=== PATIENT | male | born 1975 | race Caucasian/White ===

== ENCOUNTER 2020-06-10 13:13 | Emergency (ER) | payer OTHER ==
[~2020-06-10] VITALS: Ht 172.7 cm; Wt 87.1 kg
[2020-06-10] MEDS ORDERED: ASPirin 81 mg TAB PO ONE (14:00)
[2020-06-10 16:22] LABS: Basophils # (auto) 0 10 ^3/uL (0-0.2); Basophils % (auto) 0.4 % (0.0-2.0); Eosinophils # (auto) 0 10 ^3/uL (0-0.8); Eosinophils % (auto) 0.6 % (0.0-7.0); Hematocrit 44.2 % (41.0-53.0); Hemoglobin 14.3 g/dL (13.5-17.5); Mean Corpuscular Hemoglobin 29.7 pg (28.0-32.0); Mean Corpuscular Hgb Conc. 32.4 g/dL (32.0-36.0); Mean Corpuscular Volume 91.6 fL (80.0-100.0); Monocytes # (auto) 0.8 10 ^3/uL (0-1.3); Neutrophils # (auto) 6.1 10 ^3/uL (1.6-8.6); Nucleated Red Blood Cells % 0.1 %; Platelet Count (auto) 287 10^3/uL (140-450); Red Blood Cells 4.82 10^6/uL (4.5-5.90); Red Cell Distribution Width 14.2 % (11.8-14.3)
[2020-06-10 16:38] LABS: Alanine Aminotransferase 45 U/L (16-61); Albumin 2.9 g/dL (3.4-5.0); Anion Gap 7 (5-15); Aspartate Aminotransferase 42 U/L (15-37); Blood Urea Nitrogen 4 mg/dL (7-18); Calcium 7.9 mg/dL (8.5-10.1); Carbon Dioxide 27 mmol/L (21-32); Chloride 108 mmol/L (98-107); Glucose 77 mg/dL (74-106); Magnesium 1.9 mg/dL (1.6-2.6); Sodium 142 mmol/L (136-145)
[2020-06-10 16:41] LABS: INR 1.24 (0.9-1.15)
[2020-06-10 16:43] LABS: Alkaline Phosphatase 55 U/L (45-117); BUN/Creatinine Ratio 5.3; Bilirubin, Total 1.4 mg/dL (0.2-1.0); GFR African American 145 mL/min; GFR Non-African American 120 mL/min; Total Protein 5.6 g/dL (6.4-8.2)
[2020-06-10 16:53] LABS: Potassium 2.7 mmol/L (3.5-5.1)
[2020-06-10] MEDS ORDERED: POTASSIUM CHL 20 Meq TABLET PO ONE ×2 (17:30→17:45)
[2020-06-10 17:57] VITALS: BP 170/104
[2020-06-10] MEDS ORDERED: cloNIDine 0.1 mg/24hr 7 DAY PATCH TD ONE (18:15)
[2020-06-10] MEDS ORDERED: cloNIDine HCL 0.1 MG TAB PO ONE (18:30)
== END 2020-06-10 20:50 | disposition left against medical advice (07) ==
LOC: ER 13:13
DX: R07.2 Precordial pain (principal); I10 Essential (primary) hypertension; E87.6 Hypokalemia; G89.29 Other chronic pain; Z88.2 Allergy status to sulfonamides
CPT/HCPCS: 36415; 71045; 80053; 83735; 84484; 85025; 85379; 85610; 85730; 93005

== ENCOUNTER 2020-06-11 03:41 | Emergency (ER) | payer OTHER ==
[~2020-06-11] VITALS: Ht 172.7 cm; Wt 87.1 kg
[2020-06-11] MEDS ORDERED: SODIUM CHLORIDE 0.9% 1,000 ML IV ONE (06:46)
[2020-06-11 06:52] LABS: Basophils # (auto) 0.1 10 ^3/uL (0-0.2); Basophils % (auto) 0.9 % (0.0-2.0); Eosinophils # (auto) 0.2 10 ^3/uL (0-0.8); Eosinophils % (auto) 2.6 % (0.0-7.0); Hematocrit 42.6 % (41.0-53.0); Hemoglobin 13.6 g/dL (13.5-17.5); Lymphocytes # (auto) 0.9 10 ^3/uL (0.4-5.4); Lymphocytes % (auto) 14.9 % (10.0-50.0); Mean Corpuscular Hemoglobin 29.2 pg (28.0-32.0); Mean Corpuscular Hgb Conc. 31.9 g/dL (32.0-36.0); Mean Corpuscular Volume 91.4 fL (80.0-100.0); Monocytes # (auto) 0.6 10 ^3/uL (0-1.3); Monocytes % (auto) 10.2 % (0.0-12.0); Neutrophils # (auto) 4.4 10 ^3/uL (1.6-8.6); Neutrophils % (auto) 71.4 % (37.0-80.0); Nucleated Red Blood Cells % 0.1 %; Platelet Count (auto) 256 10^3/uL (140-450); Red Blood Cells 4.66 10^6/uL (4.5-5.90); Red Cell Distribution Width 14.3 % (11.8-14.3); White Blood Cell 6.2 10^3/uL (4.4-10.8)
[2020-06-11] MEDS ORDERED: methylPREDNISolone SOD SUCC 125 MG/2 ML VL IV ONE (07:00)
[2020-06-11] MEDS ORDERED: ASPirin 81 mg TAB PO ONE (07:00)
[2020-06-11] MEDS ORDERED: cloNIDine HCL 0.1 MG TAB PO ONE (07:00)
[2020-06-11 07:09] LABS: Chloride 108 mmol/L (98-107); Sodium 141 mmol/L (136-145)
[2020-06-11 07:16] LABS: INR 1.23 (0.9-1.15); Partial Thromboplastin Time 23.5 sec (23.0-31.2)
[2020-06-11 07:20] LABS: Alanine Aminotransferase 44 U/L (16-61); Albumin 2.5 g/dL (3.4-5.0); Alkaline Phosphatase 50 U/L (45-117); Anion Gap 6 (5-15); Aspartate Aminotransferase 41 U/L (15-37); BUN/Creatinine Ratio 4.1; Bilirubin, Total 1.4 mg/dL (0.2-1.0); Blood Urea Nitrogen 3 mg/dL (7-18); Calcium 7.4 mg/dL (8.5-10.1); Carbon Dioxide 27 mmol/L (21-32); GFR African American 149 mL/min; GFR Non-African American 123 mL/min; Glucose 76 mg/dL (74-106); Total Protein 5.1 g/dL (6.4-8.2)
[2020-06-11 07:34] LABS: Potassium 2.7 mmol/L (3.5-5.1)
[2020-06-11] MEDS ORDERED: POTASSIUM EFFERVESENT TAB 25 MEQ PO ONE (07:45)
[2020-06-11] MEDS ORDERED: POTASSIUM CHL 20MEQ/100ML 100 ML IV ONE (07:45)
[2020-06-11 10:18] VITALS: BP 146/70
== END 2020-06-11 10:20 | disposition home or self-care (01) ==
LOC: ER 03:44
DX: E87.6 Hypokalemia (principal); I10 Essential (primary) hypertension; J40 Bronchitis, not specified as acute or chronic; E44.0 Moderate protein-calorie malnutrition; Z68.29 Body mass index [BMI] 29.0-29.9, adult; F12.10 Cannabis abuse, uncomplicated; Z88.2 Allergy status to sulfonamides
CPT/HCPCS: 36415; 71045; 80053; 84484; 85025; 85379; 85610; 85730; 93005; 96361; 96365; 96366; 96375; 99285; J2930; J3480; J7030

== ENCOUNTER 2023-02-15 15:53 | Emergency (ER) | payer SELFPAY ==
[~2023-02-15] VITALS: Ht 172.7 cm; Wt 87.0 kg
[2023-02-15] MEDS ORDERED: LORazepam 2MG/ML-1ML VIAL IV ONE (16:15)
[2023-02-15] MEDS ORDERED: SODIUM CHLORIDE 0.9% 1,000 ML IVB ONE (16:15)
[2023-02-15 16:32] LABS: Basophils # (auto) 0.1 10 ^3/uL (0-0.2); Eosinophils # (auto) 0.2 10 ^3/uL (0-0.8); Monocytes # (auto) 0.9 10 ^3/uL (0-1.3); Neutrophils # (auto) 6.6 10 ^3/uL (1.6-8.6); Red Cell Distribution Width 15.4 % (11.8-14.3)
[2023-02-15 16:33] LABS: Basophils % (auto) 0.6 % (0.0-2.0); Eosinophils % (auto) 2.2 % (0.0-7.0); Hematocrit 52.2 % (41.0-53.0); Hemoglobin 17.8 g/dL (13.5-17.5); Lymphocytes # (auto) 1.6 10 ^3/uL (0.4-5.4); Mean Corpuscular Hgb Conc. 34.1 g/dL (32.0-36.0); Mean Corpuscular Volume 82.1 fL (80.0-100.0); Monocytes % (auto) 9.7 % (0.0-12.0); Neutrophils % (auto) 70.5 % (37.0-80.0); Nucleated Red Blood Cells % 0.6 %; Red Blood Cells 6.36 10^6/uL (4.5-5.90); White Blood Cell 9.3 10^3/uL (4.4-10.8)
[2023-02-15 16:53] LABS: Albumin 4.6 g/dL (3.4-5.0); Calcium 9.9 mg/dL (8.5-10.1); Potassium 3.8 mmol/L (3.5-5.1)
[2023-02-15 16:56] LABS: Bilirubin, Total 0.5 mg/dL (0.2-1.0); Total Protein 7.7 g/dL (6.4-8.2)
[2023-02-15 18:24] VITALS: BP 145/98
== END 2023-02-15 18:29 | disposition home or self-care (01) ==
LOC: ER 15:53
DX: R00.2 Palpitations (principal); R00.0 Tachycardia, unspecified; I10 Essential (primary) hypertension; F12.90 Cannabis use, unspecified, uncomplicated; Z88.2 Allergy status to sulfonamides
CPT/HCPCS: 36415; 71045; 80053; 83735; 84484; 85025; 93005; 96361; 96374; 99285; J2060; J7030

== ENCOUNTER 2024-10-06 12:12 | Emergency (ER) | payer MEDICAID, OTHER | END 2024-10-06 12:40 | disposition left against medical advice (07) | LOC: ER 12:12 | DX: J11.1 Influenza due to unidentified influenza virus with other respiratory manifestations (principal); Z53.21 Procedure and treatment not carried out due to patient leaving prior to being seen by health care provider ==

== ENCOUNTER 2024-11-13 21:59 | Emergency (ER) | payer SELFPAY ==
[~2024-11-13] VITALS: Ht 172.7 cm; Wt 90.9 kg
[2024-11-13 22:22] LABS: Basophils # (auto) 0 10 ^3/uL (0-0.2); Basophils % (auto) 0.3 % (0.0-2.0); Eosinophils # (auto) 0.1 10 ^3/uL (0-0.8); Hematocrit 49.8 % (41.0-53.0); Hemoglobin 16.9 g/dL (13.5-17.5); Lymphocytes # (auto) 1.3 10 ^3/uL (0.4-5.4); Lymphocytes % (auto) 18.5 % (10.0-50.0); Mean Corpuscular Hemoglobin 30.9 pg (28.0-32.0); Mean Corpuscular Volume 90.9 fL (80.0-100.0); Monocytes # (auto) 0.7 10 ^3/uL (0-1.3); Monocytes % (auto) 10.4 % (0.0-12.0); Neutrophils % (auto) 69.8 % (37.0-80.0); Nucleated Red Blood Cells % 0.1 %; Platelet Count (auto) 270 10^3/uL (140-450); Red Blood Cells 5.47 10^6/uL (4.5-5.90); Red Cell Distribution Width 13.2 % (11.8-14.3); White Blood Cell 7.2 10^3/uL (4.4-10.8)
[2024-11-13 22:37] LABS: Albumin 4.7 g/dL (3.2-4.8); Anion Gap 11 (5-15); Carbon Dioxide 22 mmol/L (20-31); Chloride 103 mmol/L (98-107); Glucose 106 mg/dL (74-106); Potassium 3.6 mmol/L (3.5-5.1)
[2024-11-13 22:38] LABS: Bilirubin, Total 0.7 mg/dL (0.2-1.0); Total Protein 7.3 g/dL (5.7-8.2)
[2024-11-13 22:39] LABS: INR 0.97 (0.9-1.15); Partial Thromboplastin Time 24.3 SEC (24.5-34.5); Prothrombin Time 10.3 sec (9.3-11.8)
[2024-11-13 22:41] LABS: Alanine Aminotransferase 133 U/L (7-40); Alkaline Phosphatase 124 U/L (46-116); Aspartate Aminotransferase 81 U/L (13-40); BUN/Creatinine Ratio 7.5 (10.0-20.0); Blood Urea Nitrogen < 5 mg/dL (9-23); Sodium 136 mmol/L (136-145)
--- NOTE | 2024-11-14 00:17 | DVH ---
CHEST RADIOGRAPH Indication: CP Technique: Single frontal view of the chest was obtained COMPARISON: XY CHEST PORTABLE on DOS: 02/15/23, CHEST XRAY 1 VIEW on DOS: 06/11/20, CHEST PORTABLE on DO S: 06/10/20 FINDINGS: Lines and Tubes: None Lungs: Clear Pleura: No effusion. No pneumothorax. Cardiomediastinal contours: Unremarkable Bones: Unremarkable IMPRESSION: 1. No acute disease.
[2024-11-14] MEDS ORDERED: IBUP200C14 PO (01:11)
--- NOTE | 2024-11-14 01:24 | ED.PDOC ---
History of Present Illness HPI Comments 49 y/o M, with a Hx of HTN, obesity, and marijuana and alcohol use, presents with c/o non-radiating, left-sided chest pain, palpitations, and shortness of breath, today. Patient reports sudden and unprovoked onset of symptoms, last night, that has been persisting since. He comments on pain being sharp, initi ally, and it, now, being dull and constant in nature and localized to his left, lower breast. Patient endorses no recent stressors, strenuous activities, additional significant past medical or surgical history, or relevant or pertinent information at time of assessment. He denies having any nausea, vomiting, fever, chills, cough, or other associated symptoms or modifiers at this time. Chief Complaint: Chest Pain Time Seen by MD: 22:00 Primary Care Provider: NONE Reviewed Notes: Nurses Notes, Medications, Allergies Allergies: Uncoded Allergies: SULFA (Allergy, Unknown, 06/10/20) Home Meds Active Scripts Ibuprofen (Advil) 200 Mg Cap, 800 MG PO QIDPRN, #30 CAP Prov:AB FRANCO MD 11/14/24 Information Source: Patient Mode of Arrival: Ambulatory Severity: Moderate Timing: Days Duration: Since onset Prehospital treatment: None Past Medical History PAST MEDICAL HISTORY: HTN Past Medical History (Other): obesity, childhood asthma Surgical History (Other): back and right foot Sx Family History Family History: Family hx of HTN Social History Smoker: Non-Smoker Alcohol: Rarely Drugs: Marijuana Lives In: Home Respiratory: reports: shortness of breath Cardiovascular: reports: chest pain, palpitations All Other Systems: Reviewed and Negative (negative unless otherwise stated above or in HPI) Physical Exam General Appearance: No Apparent Distress, Obese HEENT: Normal ENT Inspection, Pharynx Normal, TMs Normal Neck: Full Range of Motion, Non-Tender, Normal, Normal Inspection Respiratory: Chest Non-Tender, Lungs Clear, No Accessory Muscle Use, No Respiratory Distress, Normal Breath Sounds Cardiovascular: No Edema, No JVD, No Murmur, No Gallop, Normal Peripheral Pulses, Regular Rate/Rhythm Breast Exam: Deferred Gastrointestinal: No Organomegaly, Non Tender, No Pulsatile Mass, Normal Bowel Sounds, Soft Genitalia: Deferred Pelvic: Deferred Rectal: Deferred Extremities: No calf tenderness, Normal capillary refill, Normal inspection, Normal range of motion, Non-tender, No pedal edema Musculoskeletal : Apperance: Normal Neurologic: Alert, assistant front end manager II-XII nml as Tested, No Motor Deficits, Normal Affect, Normal Mood, No Sensory Deficits Cerebellar Function: Normal Reflexes: Normal Skin: Dry, Normal Color, Warm Lymphatic: No Adenopathy Was a procedure done? Was a procedure done?: No EKG EKG : Pulse Rate (adult): 95 [place]: Normal Cardiac Rhythm: NSR Block: None Hypertrophy: None ST: Normal Differential Dx Considerations may include: [place], PE, ACS, costochondritis, pericarditis, gastritis, viral syndrome, musculoskeletal pain, anxiety, angina, PNA, URI X-Ray, Labs, Meds, VS Vital Signs Date Time Temp Pulse Resp B/P (MAP) Pulse Ox O2 Delivery O2 Flow Rate FiO2 11/14/24 01:24 95 11/13/24 22:04 95 11/13/24 22:02 97.6 103 20 138/97 (111) 97 Lab Test 11/13/24 23:13 11/13/24 22:10 Range/Units Troponin I High Sensitivity < 3 L < 3 L </=54 ng/L White Blood Count 7.2 4.4-10.8 10^3/uL Red Blood Count 5.47 4.5-5.90 10^6/uL Hemoglobin 16.9 13.5-17.5 g/dL Hematocrit 49.8 41.0-53.0 % Mean Corpuscular Volume 90.9 80.0-100.0 fL Mean Corpuscular Hemoglobin 30.9 28.0-32.0 pg Mean Corpuscular Hemoglobin Concent 34.0 32.0-36.0 g/dL Red Cell Distribution Width 13.2 11.8-14.3 % Platelet Count 270 140-450 10^3/uL Mean Platelet Volume 7.7 6.9-10.8 fL Neutrophils (%) (Auto) 69.8 37.0-80.0 % Lymphocytes (%) (Auto) 18.5 10.0-50.0 % Monocytes (%) (Auto) 10.4 0.0-12.0 % Eosinophils (%) (Auto) 1.0 0.0-7.0 % Basophils (%) (Auto) 0.3 0.0-2.0 % Neutrophils # (Auto) 5.0 1.6-8.6 10 ^3/uL Lymphocytes # (Auto) 1.3 0.4-5.4 10 ^3/uL Monocytes # (Auto) 0.7 0-1.3 10 ^3/uL Eosinophils # (Auto) 0.1 0-0.8 10 ^3/uL Basophils # (Auto) 0 0-0.2 10 ^3/uL Nucleated Red Blood Cells 0.1 % Prothrombin Time 10.3 9.3-11.8 sec Prothrombin Time INR 0.97 0.9-1.15 Activated Partial Thromboplast Time 24.3 L 24.5-34.5 SEC Sodium Level 136 136-145 mmol/L Potassium Level 3.6 3.5-5.1 mmol/L Chloride Level 103 98-107 mmol/L Carbon Dioxide Level 22 20-31 mmol/L Anion Gap 11 5-15 Blood Urea Nitrogen < 5 L 9-23 mg/dL Creatinine 0.67 L 0.700-1.30 mg/dL Glomerular Filtration Rate Calc 116 >90 mL/min BUN/Creatinine Ratio 7.5 L 10.0-20.0 Serum Glucose 106 74-106 mg/dL Calcium Level 10.0 8.7-10.4 mg/dL Magnesium Level 2.0 1.6-2.6 mg/dL Total Bilirubin 0.7 0.2-1.0 mg/dL Aspartate Amino Transferase (AST) 81 H 13-40 U/L Alanine Aminotransferase (ALT) 133 H 7-40 U/L Alkaline Phosphatase 124 H 46-116 U/L B-Type Natriuretic Peptide 9.70 0-100 pg/mL Total Protein 7.3 5.7-8.2 g/dL Albumin 4.7 3.2-4.8 g/dL [place] [id number] Ph: [phone] DIAGNOSTIC IMAGING Diagnostic Imaging Report : [id number] Signed PATIENT: SABINA FELICIANO ACCT: [id number] UNIT: [id number] : 1975 LOC: ER ROOM / BED: / AGE / SEX: 49 / M ADM STATUS: REG ER SERVICE 0000 ORDERING PHYSICIAN: AB FRANCO MD PROCEDURE(s): CXRP - CHEST PORTABLE REASON: CP ORDER NUMBER(s): [id number], ACCESSION NUMBER(s): [id number] CHEST RADIOGRAPH Indication: CP Technique: Single frontal view of the chest was obtained COMPARISON: XY CHEST PORTABLE on DOS: 02/15/23, CHEST XRAY 1 VIEW on DOS: 06/11/20, CHEST PORTABLE on DOS: 06/10/20 FINDINGS: Lines and Tubes: None Lungs: Clear Pleura: No effusion. No pneumothorax. Cardiomediastinal contours: Unremarkable Bones: Unremarkable IMPRESSION: 1. No acute disease. ATED BY: VENKATESH POPE MD DICTATED DATE/TIME: 11/14/2414 SIGNED BY: VENKATESH POPE MD SIGNED DATE/TIME: 11/14/2414 CC: First troponin is 2nd troponin is three. EKG shows no signs of ischemia. CBC and CMP were normal. The patient will be discharged to follow up with the primary care physician for Cardiology referral. Time of 1ST Reevaluation: 22:30 Reevaluation 1ST: Unchanged Patient Education/Counseling: Diagnosis, Treatment Family Education/Counseling: No Family Present Departure 1 Departure Time of Disposition: 01:20 Impression: Primary Impression: Non-cardiac chest pain Disposition: HOME / SELF CARE / HOMELESS Condition: Fair e-Prescriptions Ibuprofen (Advil) 200 Mg Cap 800 MG PO QIDPRN, #30 CAP Prov: AB FRANCO MD 11/14/24 Critical Care Note Critical Care Time?: No Stability Stability form required: No Heart Score Heart Score: Heart Score Response (Comments) Value History Slightly Suspicious 0 EKG Normal 0 Age 45-64 1 Risk Factors 1 or 2 risk factors 1 Troponin Normal limit 0 Total 2 I personally scribed for AB FRANCO MD ([email or web address]) on 11/14/24 at 01:24. Electronically submitted by Holden Valentine ([email or web address]). AB FRANCO MD Nov 14, 2024 01:24
[2024-11-14 01:35] VITALS: BP 133/84; PULSE 85; RESP 20; TEMP 98.6; O2SAT 96
--- NOTE | 2024-11-15 12:27 | ECG ---
[facility] Test Date: 2024-11-13 Test Time: 22:04:24 Pat Name: SABINA FELICIANO Department: ED Room: Gender: M Staffing Analyst: RITU : 1975 Requested By: AB FRANCO Order Number: [id number] Reading MD: Chetan Mitchell Measurements Intervals [place] Rate: 95 P: 54 NH: 208 QRS: -31 QRSD: 81 T: 56 QT: 337 QTc: 424 Interpretive Statements Sinus rhythm Prolonged NH interval LAE, consider biatrial enlargement Left axis deviation Anterior infarct, old ST elevation, consider inferior injury Baseline wander in lead(s) V2,V5 Electronically Signed On 11-15-2024 17:49:03 PST by Chetan Mitchell Please click the below link to view image of tracing.
== END 2024-11-14 01:39 | disposition home or self-care (01) ==
LOC: ER 21:59
DX: R07.89 Other chest pain (principal); R00.2 Palpitations; R06.02 Shortness of breath; E66.9 Obesity, unspecified; I10 Essential (primary) hypertension; Z88.2 Allergy status to sulfonamides
CPT/HCPCS: 36415; 71045; 80053; 83735; 83880; 84484; 85025; 85610; 85730; 93005

== ENCOUNTER 2025-02-07 10:31 | Inpatient (IN) | payer MEDICAID ==
[~2025-02-07] VITALS: Ht 172.7 cm; Wt 94.7 kg
[~2025-02-07 10:31] MED LIST: IBUP200C14 PO
--- NOTE | 2025-02-07 10:50 | ED.PDOC ---
HPI Comments 49-year-old male brought in by self complaining of chest pain, onset this morning. Patient states he has been having intermittent chest pain for a long time, underwent echocardiogram in 2022 which he was told was unremarkable. He has never been further evaluated by a pmo consultant. Today chest pain is in the retrosternal area, described as rumbling, associated with left upper extremity pain, shortness of breath, fatigue and diaphoresis. He denies fever or cough. He states he has been out of his blood pressure medication (lisinopril 20 mg daily) since August 2024. Blood pressure at triage 147/111. Chief Complaint: Chest Pain Time Seen by MD: 10:40 Primary Care Provider: NONE Reviewed Notes: Nurses Notes, Medications, Allergies Allergies: Uncoded Allergies: SULFA (Allergy, Unknown, 06/10/20) Home Meds Active Scripts Ibuprofen (Advil) 200 Mg Cap, 800 MG PO QIDPRN, #30 CAP Prov:AB FRANCO MD 11/14/24 Information Source: Patient Mode of Arrival: Ambulatory Severity: Moderate Timing: Days Duration: Since onset Prehospital treatment: None Location: Substernal Radiation: Arm (L) Quality: Other (RUMBLING) Onset: At Rest Cardiac Risk Factors: HTN PE Risk Factors: None History of: Similar pain in past Modifying Factors: Nothing Associated Signs and Symptoms: SOB Past Medical History PAST MEDICAL HISTORY: Asthma, HTN Surgical History (Other): back, RIGHT FOOT Family History Family History: Reviewed,noncontributory to illness, Family hx of HTN Social History Smoker: Quit Greater Than 1 Year Alcohol: Rarely Drugs: Marijuana Lives In: Home Constitutional: reports: chills, sweats; denies: diaphoresis, fatigue, fever, malaise, weakness, others EENTM: denies: blurred vision, double vision, ear bleeding, ear discharge, ear drainage, ear pain, ear ringing, eye pain, eye redness, hearing loss, mouth pain, mouth swelling, nasal discharge, nose bleeding, nose congestion, nose pain, photophobia, tearing, throat pain, throat swelling, voice changes, others Respiratory: reports: shortness of breath; denies: cough, hemoptysis, orthopnea, SOB at rest, SOB with excertion, stridor, wheezing, others Cardiovascular: reports: chest pain, left arm pain; denies: dizzy spells, diaphoresis, Dyspnea on exertion, edema, irregular heart beat, lightheadedness, palpitations, PND, syncope, others Gastrointestinal: denies: abdomen distended, abdominal pain, blood streaked bowels, constipated, diarrhea, dysphagia, difficulty swallowing, hematemesis, melena, nausea, poor appetite, poor fluid intake, rectal bleeding, rectal pain, vomiting, others Genitourinary: denies: burning, dysuria, flank pain, frequency, hematuria, incontinence, penile discharge, penile sore, pain, testicle pain, testicle swelling, urgency, others Neurological: denies: dizziness, fainting, headache, left sided numbness, left sided weakness, numbness, paresthesia, pre-existing deficit, right sided numbne ss, right sided weakness, seizure, speech problems, tingling, tremors, weakness, others Musculoskeletal: denies: back pain, gout, joint pain, joint swelling, muscle pain, muscle stiffness, neck pain, others Integumetry: denies: bruises, change in color, change in hair/nails, dryness, laceration, lesions, lumps, rash, wounds, others Allergic/Immunocompromised: denies: Difficulty Healing, Frequent Infections, Hives, Itching, others Hematologic/Lymphatic: denies: anemia, blood clots, easy bleeding, easy bruising, swollen glands, others Endocrine: denies: excessive hunger, excessive sweating, excessive thirst, excessive urination, flushing, intolerance to cold, intolerance to heat, unexplained weight gain, unexplained weight loss, others Psychiatric: denies: anxiety, bipolar disorder, depression, hopeless, panic disorder, schizophrenia, sleepless, suicidal, others All Other Systems: Reviewed and Negative Physical Exam General Appearance: No Apparent Distress HEENT: Other (Pupils and face symmetric. Moist mucous membranes.) Neck: Full Range of Motion, Normal Inspection Respiratory: Lungs Clear, No Accessory Muscle Use, No Respiratory Distress, Normal Breath Sounds Cardiovascular: No Edema, No JVD, Regular Rate/Rhythm Breast Exam: Deferred Gastrointestinal: Non Tender, Soft Genitalia: Deferred Pelvic: Deferred Rectal: Deferred Extremities: Normal inspection, Normal range of motion, Non-tender, No pedal edema Neurologic: Alert (Oriented x4), Normal Affect, Normal Mood Cerebellar Function: NOT DONE Reflexes: NOT DONE Skin: Dry, Normal Color, Warm Lymphatic: NOT DONE EKG EKG : Comments Sinus rhythm, rate 86, normal intervals, borderline left axis deviation, possible left atrial enlargement, possible old anteroseptal infarct, no ST/T changes. Was a procedure done? Was a procedure done?: No CP Differential Dx Differential Diagnosis: Angina, Anxiety / Panic Attack, Heart Failure, GA, Pulmonary Embolus Differential Diagnosis: CHF, HTN Essential, HTN Accelerated Differential Diagnosis: Aortic dissection, Chest Wall Pain, Esophageal reflux/spasm, Gastritis, Pericarditis X-Ray, Labs, Meds, VS Vital Signs Date Time Temp Pulse Resp B/P (MAP) Pulse Ox O2 Delivery O2 Flow Rate FiO2 02/07/25 11:33 98.1 100 17 144/98 (113) 95 98.1 02/07/25 11:33 144/98 02/07/25 11:28 109 02/07/25 10:45 98.6 102 17 147/111 (123) 96 98.6 02/07/25 10:35 86 Lab Test 02/07/25 10:42 Range/Units White Blood Count 5.3 4.4-10.8 10^3/uL Red Blood Count 5.76 4.5-5.90 10^6/uL Hemoglobin 17.5 13.5-17.5 g/dL Hematocrit 51.8 41.0-53.0 % Mean Corpuscular Volume 89.9 80.0-100.0 fL Mean Corpuscular Hemoglobin 30.4 28.0-32.0 pg Mean Corpuscular Hemoglobin Concent 33.8 32.0-36.0 g/dL Red Cell Distribution Width 13.4 11.8-14.3 % Platelet Count 237 140-450 10^3/uL Mean Platelet Volume 7.8 6.9-10.8 fL Neutrophils (%) (Auto) 65.7 37.0-80.0 % Lymphocytes (%) (Auto) 15.0 10.0-50.0 % Monocytes (%) (Auto) 16.5 H 0.0-12.0 % Eosinophils (%) (Auto) 2.1 0.0-7.0 % Basophils (%) (Auto) 0.7 0.0-2.0 % Neutrophils # (Auto) 3.5 1.6-8.6 10 ^3/uL Lymphocytes # (Auto) 0.8 0.4-5.4 10 ^3/uL Monocytes # (Auto) 0.9 0-1.3 10 ^3/uL Eosinophils # (Auto) 0.1 0-0.8 10 ^3/uL Basophils # (Auto) 0 0-0.2 10 ^3/uL Nucleated Red Blood Cells 0.4 % Sodium Level 135 L 136-145 mmol/L Potassium Level 3.7 3.5-5.1 mmol/L Chloride Level 100 98-107 mmol/L Carbon Dioxide Level 26 20-31 mmol/L Anion Gap 9 5-15 Blood Urea Nitrogen 5 L 9-23 mg/dL Creatinine 0.78 0.700-1.30 mg/dL Glomerular Filtration Rate Calc 111 >90 mL/min BUN/Creatinine Ratio 6.4 L 10.0-20.0 Serum Glucose 96 74-106 mg/dL Calcium Level 10.0 8.7-10.4 mg/dL Total Bilirubin 1.4 H 0.2-1.0 mg/dL Aspartate Amino Transferase (AST) 203 H 13-40 U/L Alanine Aminotransferase (ALT) 150 H 7-40 U/L Alkaline Phosphatase 111 46-116 U/L Troponin I High Sensitivity 4 </=54 ng/L B-Type Natriuretic Peptide 18.79 0-100 pg/mL Total Protein 7.2 5.7-8.2 g/dL Albumin 4.5 3.2-4.8 g/dL Current Medications Medications (Trade) Dose Ordered Sig/Marlee Route Start Time Stop Time Status Last Admin Acetaminophen (Tylenol Tablet Or Capsule) 1,000 mg ONCE ONCE PO 02/07/25 11:00 02/07/25 11:01 DC 02/07/25 11:32 Nitroglycerin (Nitrodur 0.4MG/ Hr) 1 patch ONCE ONCE TD 02/07/25 11:30 02/07/25 11:31 DC 02/07/25 11:[address] [address] Ph: [phone] DIAGNOSTIC IMAGING Diagnostic Imaging Report : [id number] Signed PATIENT: SABINA FELICIANO ACCT: [id number] UNIT: [id number] : 1975 LOC: ER ROOM / BED: / AGE / SEX: 49 / M ADM STATUS: REG ER SERVICE 1046 ORDERING PHYSICIAN: ARELI WOODWARD MD PROCEDURE(s): CXRP - CHEST PORTABLE REASON: cp ORDER NUMBER(s): [id number], ACCESSION NUMBER(s): [id number] EXAM: XY CHEST PORTABLE HISTORY: cp COMPARISON: XY CHEST PORTABLE on DOS: 11/13/24, XY CHEST PORTABLE on DOS: 02/15/23, CHEST XRAY 1 VIEW on DOS: 06/11/20, CHEST PORTABLE on DOS: 06/10/20 TECHNIQUE: Portable AP view of the chest was performed. FINDINGS: No pneumothorax, consolidative infiltrates, or pulmonary edema. The heart is not enlarged. There is an old healed right mid clavicular fracture. IMPRESSION: No acute intrathoracic process. ATED BY: MONE RODRIGUEZ MD DICTATED DATE/TIME: 02/07/25 111 SIGNED BY: MONE RODRIGUEZ MD SIGNED DATE/TIME: 02/07/25 111 CC: X-Ray, Labs, Meds, VS Comment 49-year-old male with a history of hypertension, off medications for several months, presenting with chest pain radiating to the left upper extremity associated with shortness of breath, fatigue and diaphoresis Vitals remarkable for heart rate 102, BP 147/111 Exam unremarkable Rhythm strip independently interpreted by me: Sinus rhythm, rate 86, no ectopy. Chest x-ray remarkable CBC remarkable, CMP remarkable for sodium 135, AST 203, ALT 150, total bilirubin 1.4, BNP normal, troponin negative, UA pending Patient treated with the following in the ED: Nitro patch 0.4 mg transdermal Tylenol 1 g p.o. On re-evaluation, blood pressure is 144/98 and patient states chest pain has improved. Vitals are otherwise stable. Patient has been seen here several times in the ED for chest pain and has not undergone further cardiac workup. Plan is to admit the patient for blood pressure control and Cardiology evaluation Time of 1ST Reevaluation: 11:20 Reevaluation 1ST: Unchanged Patient Education/Counseling: Diagnosis, Treatment Family Education/Counseling: No Family Present Departure 1 Departure Time of Disposition: 11:36 Impression: Primary Impression: Chest pain with high risk for cardiac etiology Additional Impression: Hypertensive urgency Disposition: 09 ADMITTED INPATIENT Admit to: Tele Condition: Guarded Critical Care Note Critical Care Time?: No Stability Stability form required: No Heart Score Heart Score: Heart Score Response (Comments) Value History Highly Suspicious 2 EKG Repolarization Disturb 1 Age <45 0 Risk Factors 1 or 2 risk factors 1 Troponin Normal limit 0 Total 4 I personally scribed for ARELI WOODWARD MD ([email or web address]) on 02/07/25 at 10:50. Electronically submitted by Edna Wong ([email or web address]). I personally scribed for ARELI WOODWARD MD ([email or web address]) on 02/07/25 at 11:26. Electronically submitted by Edna Wong ([email or web address]). ARELI WOODWARD MD Feb 07, 2025 10:50
[2025-02-07 10:55] LABS: Basophils # (auto) 0 10 ^3/uL (0-0.2); Basophils % (auto) 0.7 % (0.0-2.0); Eosinophils # (auto) 0.1 10 ^3/uL (0-0.8); Eosinophils % (auto) 2.1 % (0.0-7.0); Hematocrit 51.8 % (41.0-53.0); Hemoglobin 17.5 g/dL (13.5-17.5); Lymphocytes # (auto) 0.8 10 ^3/uL (0.4-5.4); Mean Corpuscular Hemoglobin 30.4 pg (28.0-32.0); Mean Corpuscular Hgb Conc. 33.8 g/dL (32.0-36.0); Mean Corpuscular Volume 89.9 fL (80.0-100.0); Monocytes # (auto) 0.9 10 ^3/uL (0-1.3); Monocytes % (auto) 16.5 % (0.0-12.0); Neutrophils # (auto) 3.5 10 ^3/uL (1.6-8.6); Neutrophils % (auto) 65.7 % (37.0-80.0); Nucleated Red Blood Cells % 0.4 %; Platelet Count (auto) 237 10^3/uL (140-450); Red Blood Cells 5.76 10^6/uL (4.5-5.90); Red Cell Distribution Width 13.4 % (11.8-14.3); White Blood Cell 5.3 10^3/uL (4.4-10.8)
[2025-02-07 11:11] LABS: Albumin 4.5 g/dL (3.2-4.8); Alkaline Phosphatase 111 U/L (46-116); Anion Gap 9 (5-15); BUN/Creatinine Ratio 6.4 (10.0-20.0); Carbon Dioxide 26 mmol/L (20-31); Chloride 100 mmol/L (98-107); Glucose 96 mg/dL (74-106); Potassium 3.7 mmol/L (3.5-5.1); Total Protein 7.2 g/dL (5.7-8.2)
[2025-02-07 11:20] LABS: Alanine Aminotransferase 150 U/L (7-40); Aspartate Aminotransferase 203 U/L (13-40); Bilirubin, Total 1.4 mg/dL (0.2-1.0); Blood Urea Nitrogen 5 mg/dL (9-23); Sodium 135 mmol/L (136-145)
--- NOTE | 2025-02-07 11:22 | DVH ---
EXAM: XY CHEST PORTABLE HISTORY: cp COMPARISON: XY CHEST PORTABLE on DOS: 11/13/24, XY CHEST PORTABLE on DOS: 02/15/23, CHEST XRAY 1 VIEW on DOS: 06/11/20, CHEST PORTABLE on DOS: 06/10/20 TECHNIQUE: Portable AP view of the chest was performed. FINDINGS: No pneumothorax, consolidative infiltrates, or pulmonary edema. The heart is not enlarged. There is a n old healed right mid clavicular fracture. IMPRESSION: No acute intrathoracic process.
[2025-02-07] MEDS: ACETAMINOPHEN 500 MG TAB or CAP PO ONE (11:32)
[2025-02-07] MEDS: NITROGLYCERIN 0.4MG/HR TOPICAL PATCH TD ONE (11:33)
[2025-02-07 11:55] LABS: Urine Bacteria None Seen /hpf (None Seen)
[2025-02-07 12:03] LABS: Urine Blood Negative /uL (Negative); Urine Clarity Clear (Clear); Urine Color Yellow (Yellow); Urine Protein, UAD Negative (Negative); Urine Specific Gravity 1.009 (1.001-1.035); Urine Squamous Epithelial Cell None Seen /hpf (<5); Urine Urobilinogen Normal (Negative); Urine WBC 2 /HPF (0-3)
[2025-02-07] MEDS: LISINOPRIL 5 MG TAB PO ONE (17:45)
[2025-02-07] MEDS ORDERED: MORPHINE SULFATE INJ 2 MG/ml SYRG IV PRN (17:45)
[2025-02-07] MEDS ORDERED: NITROGLYCERIN 0.4 MG SL TAB SL PRN (17:45)
[2025-02-07] MEDS ORDERED: ONDANSETRON HCL 4 MG/2 ML VIAL IV PRN (17:45)
[2025-02-07] MEDS ORDERED: ATORVASTATIN 20 MG TAB PO ONE (17:45)
[2025-02-07] MEDS ORDERED: ACETAMINOPHEN 325 MG TAB PO PRN (17:45)
--- NOTE | 2025-02-07 17:47 | DVHHPRES ---
History of Present Illness Resident Creating Document: TANIA HENRIQUEZ RESDIENT History of Present Illness 49-year-old male with past medical history of hypertension and childhood asthma came to the hospital due to chest and left upper limb pain. Per patient, he has chronic chest pain since few years, pain is localized on left side of chest, constant, 3/10, pressure-like with no clear exacerbating or relieving factor. Today, upon waking of sleep he had left upper limb pain, pain is localized lower to elbow, 5/10, worsened with mobility and reproducible with palpation. He also reports night sweats, recurrent palpitation which wakens up him from sleep 30-40 times per night and upon waking up feel shortness of breaths. He denies fever, nausea, vomiting, any recent sick contacts or any bowel and bladder habit changes. Patient was previously using lisinopril 20 mg daily and has run out of medicine since August 2024. PMHx: Hypertension and childhood asthma PSHx: Nonsignificant Family history: Not contributory Social history: Ex-smoker ex marijuana user, denies current drug use. Home medication: Lisinopril 20 mg daily, ran out of medicines since August 2024 Allergic history: Sulfa drugs Patient seen and examined at the bedside. Patient is still complaining of left- sided chest and left upper limb pain. Review of Systems Review of Systems General: patient denies fever, fatigue, weaknes, sweating, any recent changes in appetite and weight HEENT: Reports nighttime sweating Cardiovascular: Reports chest pain and nighttime palpitation Respiratory: No cough, and wheezing. Gastrointestinal: Denies nausea, vomiting, dysphagia, odynophagia, heartburn, abdominal pain, flatulence, bloating, diarrhea, constipation, change in stool, or blood in stool. Genitourinary: No dysuria, hematuria, discharge, frequency, urgency, nocturia, incontinence, and urinary retention. Endocrine: No heat or cold intolerance, polydipsia, polyuria, and polyphagia. Neurological: No dizziness, extremity weakness and numbness, tremors, gait disturbance, seizures, and memory impairment. Psychiatric: Denies depression, anxiety,or insomnia. Musculoskeletal: Denies neck pain, stiffness and swelling, back pain, muscle weakness, joint pain, stiffness, swelling, or limited range of motion. Skin: No rashes, itching, skin lesion, changes in hair, nail, skin texture and breast. Hematologic/Lymphatic: Denies easy bruising, bleeding tendencies, or lymph node enlargement. Allergies: Uncoded Allergies: SULFA (Allergy, Unknown, 06/10/20) Medications Current Medications Medications Dose Ordered Sig/Marlee Route Start Time Stop Time Status Last Admin Dose Admin Acetaminophen 650 mg Q6HP PRN PO 02/07/25 17:45 UNV Acetaminophen/ Hydrocodone Bitart 1 tab Q4HP PRN PO 02/07/25 17:45 UNV Ondansetron HCl 4 mg Q4HP PRN IV 02/07/25 17:45 UNV Enoxaparin Sodium 40 mg DAILY SC 02/08/25 10:00 UNV Nitroglycerin 0.4 mg Q5MINP PRN SL 02/07/25 17:45 UNV Morphine Sulfate 2 mg Q30M PRN IV 02/07/25 17:45 UNV Aspirin 81 mg DAILY PO 02/08/25 10:00 UNV Exam Vital Signs Vital Signs Date Time Temp Pulse Resp B/P (MAP) Pulse Ox O2 Delivery O2 Flow Rate FiO2 02/07/25 14:30 98.9 97 18 146/87 (106) 96 98.9 02/07/25 11:33 Room Air Exam General Appearance: Alert, Oriented X3, Cooperative, No acute distress HEENT: Atraumatic, PERRLA, EOMI, Mucous membrane moist/pink Respiratory: Clear to auscultation, Normal air movement Cardiovascular: Regular rate, Normal S1, Normal S2, No murmurs, no chest wall tenderness Abdominal: Normal bowel sounds, Soft, No tenderness, No hepatosplenomegaly, No masses Extremities: Left upper arm below elbow mild tenderness Skin: No rashes, No breakdown, No significant lesion Neuro: Normal gait, Normal speech, Strength at 5/5 X4 ext, Normal tone, Sensation intact, Cranial nerves 3-12 NL, Reflexes 2+ Psych/Mental Status: Mental status NL, Mood NL Labs/Xrays Labs Test 02/07/25 11:53 02/07/25 11:22 02/07/25 10:42 Range/Units Troponin I High Sensitivity 4 </=54 ng/L Urine Color Yellow Yellow Urine Clarity Clear Clear Urine pH 7.0 5.0-9.0 Urine Specific [place] 1.009 1.001-1.035 Urine Protein Negative Negative Urine Ketones 1+ H Negative Urine Blood Negative Negative /uL Urine Nitrite Negative Negative Urine Bilirubin Negative Negative Urine Urobilinogen Normal Negative mg/dL Urine Leukocyte Esterase Negative Negative /uL Urine RBC <1 0 - 3 /hpf Urine Microscopic WBC 2 0-3 /HPF Urine Squamous Epithelial Cells None seen <5 /hpf Urine Bacteria None seen None Seen /hpf Urine Glucose Normal Normal mg/dL White Blood Count 5.3 4.4-10.8 10^3/uL Red Blood Count 5.76 4.5-5.90 10^6/uL Hemoglobin 17.5 13.5-17.5 g/dL Hematocrit 51.8 41.0-53.0 % Mean Corpuscular Volume 89.9 80.0-100.0 fL Mean Corpuscular Hemoglobin 30.4 28.0-32.0 pg Mean Corpuscular Hemoglobin Concent 33.8 32.0-36.0 g/dL Red Cell Distribution Width 13.4 11.8-14.3 % Platelet Count 237 140-450 10^3/uL Mean Platelet Volume 7.8 6.9-10.8 fL Neutrophils (%) (Auto) 65.7 37.0-80.0 % Lymphocytes (%) (Auto) 15.0 10.0-50.0 % Monocytes (%) (Auto) 16.5 H 0.0-12.0 % Eosinophils (%) (Auto) 2.1 0.0-7.0 % Basophils (%) (Auto) 0.7 0.0-2.0 % Neutrophils # (Auto) 3.5 1.6-8.6 10 ^3/uL Lymphocytes # (Auto) 0.8 0.4-5.4 10 ^3/uL Monocytes # (Auto) 0.9 0-1.3 10 ^3/uL Eosinophils # (Auto) 0.1 0-0.8 10 ^3/uL Basophils # (Auto) 0 0-0.2 10 ^3/uL Nucleated Red Blood Cells 0.4 % Sodium Level 135 L 136-145 mmol/L Potassium Level 3.7 3.5-5.1 mmol/L Chloride Level 100 98-107 mmol/L Carbon Dioxide Level 26 20-31 mmol/L Anion Gap 9 5-15 Blood Urea Nitrogen 5 L 9-23 mg/dL Creatinine 0.78 0.700-1.30 mg/dL Glomerular Filtration Rate Calc 111 >90 mL/min BUN/Creatinine Ratio 6.4 L 10.0-20.0 Serum Glucose 96 74-106 mg/dL Calcium Level 10.0 8.7-10.4 mg/dL Total Bilirubin 1.4 H 0.2-1.0 mg/dL Aspartate Amino Transferase (AST) 203 H 13-40 U/L Alanine Aminotransferase (ALT) 150 H 7-40 U/L Alkaline Phosphatase 111 46-116 U/L B-Type Natriuretic Peptide 18.79 0-100 pg/mL Total Protein 7.2 5.7-8.2 g/dL Albumin 4.5 3.2-4.8 g/dL Assessment/Plan Assessment/Plan Chest pain, R/O ACS Left upper arm pain, likely due to muscle spasm History of hypertension EKGs shows normal sinus rhythm with no acute ST or T-wave changes Serial trop I is within normal limits Consulted cardio Echocardiogram Aspirin Atorvastatin Lisinopril Pain management Acute transaminitis Check acute hepatitis panel Liver ultrasound History of childhood asthma DIET: Cardiac the DVT PROPHYLAXIS: Lovenox GI PROPHYLAXIS:: Protonix CODE STATUS: Goal of care discussed for 20 minutes, full code DISPOSITION: Telemetry Patient's status and plan discussed with the patient. Case discussed with Dr. Colón. Plan discussed with: Patient, Other (RN) My Orders Orders - TANIA HENRIQUEZ RESDIVIVIENNE Procedure Category Date Status Time Admit ADMIT 02/07/25 Transmitted 17:39 Code Status CODE 02/07/25 Transmitted 17:39 Vital Signs KATHY 02/07/25 In Process 17:39 Review Orders With KATHY 02/07/25 In Process Adm. 17:39 Consistent DIET 02/07/25 Transmitted Carb(Ccho)Diabetes Dinner Acetaminophen Tablet PHA 02/07/25 Logged (Tylenol Tablet) 17:45 Notify Of Changes KATHY 02/07/25 In Process From Base 17:39 Advance Directive KATHY 02/07/25 In Process 17:39 Echo 2d Mode Cardiac US 02/07/25 Logged DOP 17:39 Lipid Panel LAB 02/07/25 Logged 17:39 Patient Condition ORDERS 02/07/25 Transmitted 17:39 Allergies KATHY 02/07/25 In Process 17:39 Hydrocodone-Acet PHA 02/07/25 Logged 5/325mg Tab ([place] 17:45 Ondansetron Hcl PHA 02/07/25 Logged (Zofran) 17:45 Drug Screen LAB 02/07/25 Logged 17:39 Hemoglobin A1c LAB 02/07/25 Logged 17:39 Lovenox 40mg PHA 02/08/25 Transmitted 10:00 Nitroglycerin PHA 02/07/25 Transmitted Sublingual (Ntrostat 17:45 Morphine Sulfate PHA 02/07/25 Transmitted Injection 17:45 Oxygen By Nasal RT 02/07/25 Transmitted Cannula 17:39 Stat Ekg For Chest KATHY 02/07/25 Transmitted Pain 17:39 Notify Md Of Changes [facility] 02/07/25 Transmitted From Base 17:39 Radiographer Mammographer For [facility] 02/07/25 Transmitted 24 Hours 17:39 Emergency Dysrhythmia [facility] 02/07/25 Transmitted Protocol 17:39 Rhythm Strips Once [facility] 02/07/25 Transmitted Every Shift 17:39 Thyroid Stimulating LAB 02/07/25 Logged Hormone 17:39 Comprehensive LAB 02/08/25 Verified Metabolic Panel 04:00 Complete Blood Count LAB 02/08/25 Verified 04:00 PTPTT LAB 02/08/25 Verified 04:00 Aspirin Tablet PHA 02/07/25 Transmitted 17:45 Aspirin Tablet PHA 02/08/25 Transmitted 10:00 Atorvastatin (Lipitor) PHA 02/07/25 Transmitted 17:45 Atorvastatin (Lipitor) PHA 02/07/25 Transmitted 22:00 Lisinopril Tablet PHA 02/07/25 Transmitted (Zestril Tablet) 17:45 Lisinopril Tablet PHA 02/08/25 Transmitted (Zestril Tablet) 10:00 Gabapentin Capsule PHA 02/07/25 Transmitted (Neurontin Capsule) 17:45 Gabapentin Capsule PHA 02/07/25 Transmitted (Neurontin Capsule) 22:00 * Cardiology Consult CONS 02/07/25 Transmitted 17:39 Acute Hepatitis Panel LAB 02/07/25 Logged 17:39 Hiv 1&2 Antibody LAB 02/07/25 Logged 17:39 LIVER US 02/07/25 Logged 17:39 Magnesium LAB 02/07/25 Verified 17:47 Addendum Addendum Addendum I was physically present for the caicedo portions of the service provided to patient by THE RESIDENT. I have reviewed the documentation, discussed the case with resident and agree with the resident's documentation except as noted. Also the patient's clinical case was discussed with the patient's nurse. This medical document was created using an electronic medical record system with computerized dictation system. Although this document has been carefully reviewed, there might still be some phonetic and typographical errors. These areas are purely typographical due to imperfections of the software programs, and do not reflect any compromise in the patient's medical care. Late signature. Date of Service: Feb 07, 2025 Billing Provider: CARLOS COLÓN MD Common Visit Codes: 98455-ANTOULT INP/OBS CARE (HIGH) Secondary Visit Codes: [id number] CARE PLAN 30 MINUTES (20 minutes) TANIA HENRIQUEZ RESDIENT Feb 07, 2025 17:47 CARLOS COLÓN MD Feb 08, 2025 14:15
[2025-02-07 18:23] LABS: Triglycerides 74 mg/dL (< 150)
[2025-02-07 18:24] LABS: LDL Cholesterol 84 mg/dL (< 100)
[2025-02-07 18:26] LABS: Cholesterol 218 mg/dL (< 200); HDL Cholesterol 109 mg/dL (40-59)
[2025-02-07] MEDS: ASPirin 81 mg TAB PO ONE (18:30)
[2025-02-07] MEDS: GABAPENTIN 100 MG CAP PO ONE (18:30)
[2025-02-07] MEDS: HYDROcodone-ACET 5/325MG TAB PO PRN (18:44)
[2025-02-07] MEDS ORDERED: CYCLOBENZAPRINE HCL 10 MG TAB PO PRN (18:45)
[2025-02-07] MEDS: CYCLOBENZAPRINE HCL 10 MG TAB PO ONE (18:46)
--- NOTE | 2025-02-07 19:26 | DVH ---
ABDOMINAL ULTRASOUND CLINICAL HISTORY: Raised LFT TECHNIQUE: Multiple grayscale and color Doppler ultrasound images were obtained of the abdomen. WID: COMPARISON: None FINDINGS: Liver and Biliary System: Increased echogenicity, enlarged measuring 18.4 cm. No focal hepatic obs ervations. No intrahepatic bile duct dilatation. The common duct measures 0.6 cm at the doris hepat is. The gallbladder is normal caliber without wall thickening.. No cholelithiasis, sonographic mur phy's sign is negative. Pancreas: Visualized portions are unremarkable. Kidneys: The right kidney is 12.7 cm . No hydronephrosis, increased echogenicity, shadowing stone, or focal lesion. IMPRESSION: Hepatomegaly with diffuse hepatic steatosis.
[2025-02-07 19:57] LABS: Cannabinoid Screen, Urine Pos (NEGATIVE)
[2025-02-07 19:58] LABS: Amphetamine Screen, Urine Neg (NEGATIVE); Barbiturate Scree,Urine Neg (NEGATIVE); Benzodiazephine Screen, Urine Neg (NEGATIVE); Cocaine Screen, Urine Neg (NEGATIVE); Opiate Scree,Urine Neg (NEGATIVE); Phencyclidine Screen, Urine Neg (NEGATIVE)
[2025-02-07 20:04] VITALS: PULSE 102; RESP 16; O2SAT 94
[2025-02-07] MEDS: PANTOPRAZOLE 40 MG/10 ML VIAL INJ IV ONE (20:39)
[2025-02-07] MEDS: ATORVASTATIN 20 MG TAB PO SCH (22:27)
[2025-02-07] MEDS: GABAPENTIN 100 MG CAP PO SCH (22:27)
[2025-02-07 22:59] VITALS: BP 130/87; PULSE 90; RESP 16; TEMP 97.6; O2SAT 96
[2025-02-08] VITALS (7 sets, daily range): BP systolic 118–128; BP diastolic 80–90; PULSE 80–100; RESP 13–18; TEMP 97.5–98; O2SAT 94–97
[2025-02-08 05:44] LABS: Basophils # (auto) 0 10 ^3/uL (0-0.2); Basophils % (auto) 0.6 % (0.0-2.0); Eosinophils # (auto) 0.2 10 ^3/uL (0-0.8); Eosinophils % (auto) 3.8 % (0.0-7.0); Hematocrit 46.8 % (41.0-53.0); Hemoglobin 15.7 g/dL (13.5-17.5); Lymphocytes % (auto) 17.1 % (10.0-50.0); Mean Corpuscular Hemoglobin 30.2 pg (28.0-32.0); Mean Corpuscular Hgb Conc. 33.5 g/dL (32.0-36.0); Mean Corpuscular Volume 90.4 fL (80.0-100.0); Monocytes # (auto) 0.8 10 ^3/uL (0-1.3); Monocytes % (auto) 13.9 % (0.0-12.0); Neutrophils # (auto) 3.9 10 ^3/uL (1.6-8.6); Neutrophils % (auto) 64.6 % (37.0-80.0); Nucleated Red Blood Cells % 0.1 %; Platelet Count (auto) 214 10^3/uL (140-450); Red Blood Cells 5.18 10^6/uL (4.5-5.90); Red Cell Distribution Width 13.2 % (11.8-14.3)
[2025-02-08 06:00] LABS: INR 0.98 (0.9-1.15); Prothrombin Time 10.4 sec (9.3-11.8)
[2025-02-08 06:01] LABS: Alkaline Phosphatase 92 U/L (46-116); Anion Gap 8 (5-15); BUN/Creatinine Ratio 6.8 (10.0-20.0); Calcium 9.5 mg/dL (8.7-10.4); Carbon Dioxide 26 mmol/L (20-31); Chloride 101 mmol/L (98-107); Glucose 93 mg/dL (74-106); Total Protein 6.4 g/dL (5.7-8.2)
[2025-02-08 06:09] LABS: Alanine Aminotransferase 117 U/L (7-40); Aspartate Aminotransferase 117 U/L (13-40); Bilirubin, Total 1.3 mg/dL (0.2-1.0); Blood Urea Nitrogen 5 mg/dL (9-23); Potassium 3.2 mmol/L (3.5-5.1); Sodium 135 mmol/L (136-145)
--- NOTE | 2025-02-08 06:40 | DVHPNRES ---
Progress Note Date Seen: Feb 08, 2025 Resident Creating Document: TANIA HENRIQUEZ RESDIENT Medical Necessity Reason Pt with a Central, PICC or Fol: No Subjective Review of Systems Patient seen and examined at the bedside. Patient is still complaining of mild chest pain. Patient reports: No new complaints, Feels better Objective vital signs Vital Sign Date Time Temp Pulse Resp B/P (MAP) Pulse Ox O2 Delivery O2 Flow Rate FiO2 02/08/25 05:21 80 15 123/80 (94) 96 02/08/25 01:00 97.7 97.7 02/07/25 22:59 Room Air* 0 21 Total Intake and Output 02/07/25 02/07/25 02/08/25 15:00 23:00 07:00 Intake Total 50 ml Output Total 0 ml Balance 50 ml medications Current Medications Medications Dose Ordered Sig/Marlee Route Start Time Stop Time Status Last Admin Dose Admin Acetaminophen 650 mg Q6HP PRN PO 02/07/25 17:45 Acetaminophen/ Hydrocodone Bitart 1 tab Q4HP PRN PO 02/07/25 17:45 02/08/25 05:51 1 TAB Ondansetron HCl 4 mg Q4HP PRN IV 02/07/25 17:45 Enoxaparin Sodium 40 mg DAILY SC 02/08/25 10:00 Nitroglycerin 0.4 mg Q5MINP PRN SL 02/07/25 17:45 Morphine Sulfate 2 mg Q30M PRN IV 02/07/25 17:45 Aspirin 81 mg DAILY PO 02/08/25 10:00 Atorvastatin Calcium 80 mg HS PO 02/07/25 22:00 02/07/25 22:27 80 MG Lisinopril 10 mg DAILY PO 02/08/25 10:00 Gabapentin 100 mg BID PO 02/07/25 22:00 02/07/25 22:27 100 MG Pantoprazole Sodium 40 mg DAILY IV 02/08/25 10:00 Cyclobenzaprine HCl 5 mg Q8HPRN PRN PO 02/07/25 18:45 Examination General Appearance: Alert, Oriented X3, Cooperative, No acute distress HEENT: Atraumatic, PERRLA, EOMI, Mucous membrane moist/pink Respiratory: Clear to auscultation, Normal air movement Cardiovascular: Regular rate, Normal S1, Normal S2, No murmurs, no chest wall tenderness Abdominal: Normal bowel sounds, Soft, No tenderness, No hepatospenomegaly, No masses Extremities: No clubbing, No cyanosis, No edema, Normal pulses, No tenderness/swelling Skin: No rashes, No breakdown, No significant lesion Neuro: Normal gait, Normal speech, Strength at 5/5 X4 ext, Normal tone, Sensation intact, Cranial nerves 3-12 NL, Reflexes 2+ Psych/Mental Status: Mental status NL, Mood NL laboratory and microbiology Laboratory Tests 02/08/25 04:56 Test 02/08/25 04:56 Range/Units Serum Glucose 93 74-106 mg/dL Labs and/or images reviewed: Labs reviewed by me, Image(s) reviewed by me Problem List/Assessment/Plan Problem List/Assessment/Plan Chest pain, R/O ACS Left upper arm pain, likely due to muscle spasm History of hypertension EKGs shows normal sinus rhythm with no acute ST or T-wave changes Serial trop I is within normal limits Consulted cardio, recommended nuclear stress test Echocardiogram Aspirin Atorvastatin Lisinopril Pain management Acute transaminitis Check acute hepatitis panel Liver ultrasound History of childhood asthma Dyslipidemia Hypokalemia, repleted Hypomagnesemia, repleted Hepatomegaly Ultrasound shows, hepatomegaly with diffuse hepatic steatosis DIET: Cardiac the DVT PROPHYLAXIS: Lovenox GI PROPHYLAXIS:: Protonix CODE STATUS: Goal of care discussed for more than 18 minutes, full code DISPOSITION: Telemetry Patient's status and plan discussed with the patient. Case discussed with Dr. Saba. Plan discussed with: Patient, Other (RN) My Orders My Orders Orders - TANIA HENRIQUEZ RESDIVIVIENNE Procedure Category Date Status Time Admit ADMIT 02/07/25 Transmitted 17:39 Code Status CODE 02/07/25 Transmitted 17:39 Vital Signs KATHY 02/07/25 In Process 17:39 Review Orders With KATHY 02/07/25 In Process Adm.Md 17:39 Consistent DIET 02/07/25 Transmitted Carb(Ccho)Diabetes Dinner Acetaminophen Tablet PHA 02/07/25 In Process (Tylenol Tablet) 17:45 Notify Md Of Changes KATHY 02/07/25 In Process From Base 17:39 Advance Directive KATHY 02/07/25 In Process 17:39 Echo 2d Mode Cardiac US 02/07/25 Logged DOP 17:39 Patient Condition ORDERS 02/07/25 Transmitted 17:39 Allergies KATHY 02/07/25 In Process 17:39 Hydrocodone-Acet PHA 02/07/25 In Process 5/325mg Tab ([place] 17:45 Ondansetron Hcl PHA 02/07/25 In Process (Zofran) 17:45 Enoxaparin Sodium PHA 02/08/25 In Process (Lovenox) 10:00 Nitroglycerin PHA 02/07/25 In Process Sublingual (Ntrostat 17:45 Morphine Sulfate PHA 02/07/25 In Process Injection 17:45 Oxygen By Nasal RT 02/07/25 Transmitted Cannula 17:39 Stat Ekg For Chest KATHY 02/07/25 In Process Pain 17:39 Notify Md Of Changes KATHY 02/07/25 In Process From Base 17:39 Immigration Case Manager For KATHY 02/07/25 In Process 24 Hours 17:39 Emergency Dysrhythmia KATHY 02/07/25 In Process Protocol 17:39 Rhythm Strips Once KATHY 02/07/25 In Process Every Shift 17:39 Aspirin Tablet PHA 02/08/25 In Process 10:00 Atorvastatin (Lipitor) PHA 02/07/25 In Process 22:00 Lisinopril Tablet PHA 02/08/25 In Process (Zestril Tablet) 10:00 Gabapentin Capsule PHA 02/07/25 In Process (Neurontin Capsule) 22:00 * Cardiology Consult CONS 02/07/25 Transmitted 17:39 Acute Hepatitis Panel LAB 02/07/25 In Process 17:39 LIVER US 02/07/25 Resulted 17:39 Pantoprazole PHA 02/08/25 In Process (Protonix) 10:00 Cyclobenzaprine PHA 02/07/25 In Process Tablet ([place]er[place] 18:45 Date of Service: Feb 08, 2025 Billing Provider: ZEINA JIMENEZ MD Common Visit Codes: [id number] INP/OBS CARE(HIGH) TANIA HENRIQUEZ RESDIENT Feb 08, 2025 06:40 ZEINA JIMENEZ MD February 11, 2025 20:11
--- NOTE | 2025-02-08 06:44 | ECG ---
[facility] Test Date: 2025-02-07 Test Time: 10:35:39 Pat Name: SABINA FELICIANO Department: ED Room: 0279T Gender: M [employer] Supervisor: : 1975 Requested By: ARELI ROSAS Order Number: [id number] Reading MD: Chetan Mitchell Measurements Intervals [place] Rate: 86 P: 54 ID: [id number] QRS: -28 QRSD: 89 T: 49 QT: 373 QTc: 446 Interpretive Statements Sinus rhythm LAE, consider biatrial enlargement Borderline left axis deviation Probable anteroseptal infarct, old Electronically Signed On 02-08-2025 17:09:41 PDT by Chetan Mitchell Please click the below link to view image of tracing.
[2025-02-08] MEDS: POTASSIUM EFFERVESENT TAB 25 MEQ PO ONE (07:03)
[2025-02-08] MEDS: MAGNESIUM SULFATE 1GM/100ML 100 ML IV ONE (07:12)
[2025-02-08] MEDS: ASPirin 81 mg TAB PO SCH (09:11)
[2025-02-08] MEDS: LISINOPRIL 5 MG TAB PO SCH (09:12)
[2025-02-08] MEDS: ENOXAPARIN SOD 40 MG/0.4 ML SYRINGE SC SCH (09:13)
[2025-02-08 10:07] LABS: Hepatitis B Surface Antigen Negative (Negative)
[2025-02-08] MEDS: PANTOPRAZOLE 40 MG/10 ML VIAL INJ IV SCH (10:19)
[2025-02-08 10:27] LABS: Hepatitis A Ab IgM Negative; Hepatitis B Core IgM Negative (Negative); Hepatitis C Antibody Negative (Negative)
--- NOTE | 2025-02-08 11:22 | DVHINCON2 ---
Date Seen: Feb 08, 2025 Referring Physician MD Gina resident Reason for Consultation Rule out ACS History of Present Illness This is a 49-year-old male patient who presents to the emergency room with worsening chest pain for two months. The patient describes the pain as unprovoked, intermittent, pressure-like in nature, left sided with radiation down his left arm. Associated symptoms include shortness of breath. Initial twelve lead electrocardiogram reveals normal sinus rhythm without any significant ST segment changes. Initial troponin level of 4ng/L. Significant past medical history includes hypertension, dyslipidemia, asthma, chronic back pain, migraines, tobacco use, alcohol use, and remote history of drug use. The patient was given transdermal nitroglycerin in the emergency room and the patient reports that it helped his chest pain. Of note, the patient reports coming to the emergency room multiple times for chest pain and states he has had no kind of cardiac workup in the past. Past Medical History Past medical history reviewed. No other significant than mentioned above. Past Surgical History Back surgery Family History: Patient reports no known family medical history. Family History Family history reviewed. Social History Patient has a 10 pack-year history, quit smoking tobacco approximately 20 years ago Patient reports chewing tobacco for 27 years, quit approximately five years ago Patient reports a remote history of cocaine abuse, last time approximately 30 years ago Patient admits to drinking 6-8 beers per day Allergies: Uncoded Allergies: SULFA (Allergy, Unknown, 06/10/20) Home Meds Active Scripts Ibuprofen (Advil) 200 Mg Cap, 800 MG PO QIDPRN, #30 CAP Prov:AB FRANCO MD 11/14/24 Home Meds Home medications reviewed. Current Medications Current Medications Medications (Trade) Dose Ordered Sig/Marlee Route PRN Reason Start Time Stop Time Status Last Admin Acetaminophen (Tylenol Tablet) 650 mg Q6HP PRN PO PAIN SCALE 1-3 OR TEMP>100.4 02/07/25 17:45 Acetaminophen/ Hydrocodone Bitart ([place] 5/325MG Tab) 1 tab Q4HP PRN PO MODERATE PAIN (4-6 PAIN SCALE) 02/07/25 17:45 02/08/25 05:51 Ondansetron HCl (Zofran) 4 mg Q4HP PRN IV NAUSEA / VOMITING 02/07/25 17:45 Enoxaparin Sodium (Lovenox) 40 mg DAILY SC 02/08/25 10:00 02/08/25 09:13 Nitroglycerin (Ntrostat Sublingual) 0.4 mg Q5MINP PRN SL FOR CHEST PAIN 02/07/25 17:45 Morphine Sulfate 2 mg Q30M PRN IV FOR CHEST PAIN 02/07/25 17:45 Aspirin 81 mg DAILY PO 02/08/25 10:00 02/08/25 09:11 Atorvastatin Calcium (Lipitor) 80 mg HS PO 02/07/25 22:00 02/07/25 22:27 Lisinopril (Zestril Tablet) 10 mg DAILY PO 02/08/25 10:00 02/08/25 09:12 Gabapentin (Neurontin Capsule) 100 mg BID PO 02/07/25 22:00 02/08/25 09:11 Pantoprazole Sodium (Protonix) 40 mg DAILY IV 02/08/25 10:00 02/08/25 10:19 Cyclobenzaprine HCl (Flexeril Tablet) 5 mg Q8HPRN PRN PO FOR MUSCLE SPASM 02/07/25 18:45 Review of Systems Constitutional: No symptom reported Ears, Nose, & Throat: No symptom reported Eyes: No symptom reported Neurological: No symptoms reported Pulmonary/Respiratory: Shortness of breath Cardiovascular: Chest pain Gastrointestinal: No symptom reported Genitourinary: No symptom reported Musculoskeletal: No symptom reported Skin: No symptom reported Psychiatric: No symptom reported Endocrine: No symptom reported Hematologic/Lymphatic: No symptom reported Vital Signs Vital Signs Date Time Temp Pulse Resp B/P (MAP) Pulse Ox O2 Delivery O2 Flow Rate FiO2 02/08/25 09:12 128/90 02/08/25 08:07 97.7 81 18 96 97.7 02/07/25 22:59 Room Air* 0 21 Physical Exam General Appearance: Cooperative. Well-developed. Well-nourished. No acute distress. Pulmonary/Respiratory: Clear, bilateral breaths sounds. Cardiovascular/Chest: Regular rate and rhythm. Peripheral Pulses: 2+ Radial (R). 2+ Radial (L). 2+ Pedal (R). 2+ Pedal (L) Abdominal Exam: Normal bowel sounds. Ankle Exam: Negative ankle edema Lower extremities: Negative lower extremity edema Neuro/Mental Status: A/OX4, coherent. Thoughts/Psych: Normal thought pattern. Appropriate mood and affect. Good judgment and insight. Appearance: No acute distress. Skin Exam: Normal inspection. Normal color. Warm and dry. Labs/Diagnostic Data Labs Test 02/08/25 04:56 02/07/25 11:53 02/07/25 11:22 02/07/25 10:42 Range/Units White Blood Count 6.0 4.4-10.8 10^3/uL Red Blood Count 5.18 4.5-5.90 10^6/uL Hemoglobin 15.7 13.5-17.5 g/dL Hematocrit 46.8 41.0-53.0 % Mean Corpuscular Volume 90.4 80.0-100.0 fL Mean Corpuscular Hemoglobin 30.2 28.0-32.0 pg Mean Corpuscular Hemoglobin Concent 33.5 32.0-36.0 g/dL Red Cell Distribution Width 13.2 11.8-14.3 % Platelet Count 214 140-450 10^3/uL Mean Platelet Volume 8.2 6.9-10.8 fL Neutrophils (%) (Auto) 64.6 37.0-80.0 % Lymphocytes (%) (Auto) 17.1 10.0-50.0 % Monocytes (%) (Auto) 13.9 H 0.0-12.0 % Eosinophils (%) (Auto) 3.8 0.0-7.0 % Basophils (%) (Auto) 0.6 0.0-2.0 % Neutrophils # (Auto) 3.9 1.6-8.6 10 ^3/uL Lymphocytes # (Auto) 1.0 0.4-5.4 10 ^3/uL Monocytes # (Auto) 0.8 0-1.3 10 ^3/uL Eosinophils # (Auto) 0.2 0-0.8 10 ^3/uL Basophils # (Auto) 0 0-0.2 10 ^3/uL Nucleated Red Blood Cells 0.1 % Prothrombin Time 10.4 9.3-11.8 sec Prothrombin Time INR 0.98 0.9-1.15 Activated Partial Thromboplast Time 25.0 24.5-34.5 SEC Sodium Level 135 L 136-145 mmol/L Potassium Level 3.2 L 3.5-5.1 mmol/L Chloride Level 101 98-107 mmol/L Carbon Dioxide Level 26 20-31 mmol/L Anion Gap 8 5-15 Blood Urea Nitrogen 5 L 9-23 mg/dL Creatinine 0.74 0.700-1.30 mg/dL Glomerular Filtration Rate Calc 112 >90 mL/min BUN/Creatinine Ratio 6.8 L 10.0-20.0 Serum Glucose 93 74-106 mg/dL Calcium Level 9.5 8.7-10.4 mg/dL Total Bilirubin 1.3 H 0.2-1.0 mg/dL Aspartate Amino Transferase (AST) 117 H 13-40 U/L Alanine Aminotransferase (ALT) 117 H 7-40 U/L Alkaline Phosphatase 92 46-116 U/L Total Protein 6.4 5.7-8.2 g/dL Albumin 4.0 3.2-4.8 g/dL Troponin I High Sensitivity 4 </=54 ng/L Urine Color Yellow Yellow Urine Clarity Clear Clear Urine pH 7.0 5.0-9.0 Urine Specific [place] 1.009 1.001-1.035 Urine Protein Negative Negative Urine Ketones 1+ H Negative Urine Blood Negative Negative /uL Urine Nitrite Negative Negative Urine Bilirubin Negative Negative Urine Urobilinogen Normal Negative mg/dL Urine Leukocyte Esterase Negative Negative /uL Urine RBC <1 0 - 3 /hpf Urine Microscopic WBC 2 0-3 /HPF Urine Squamous Epithelial Cells None seen <5 /hpf Urine Bacteria None seen None Seen /hpf Urine Glucose Normal Normal mg/dL Urine Opiates Screen Neg NEGATIVE Urine Fentanyl Screen Neg NEGATIVE Urine Barbiturates Screen Neg NEGATIVE Urine Phencyclidine Screen Neg NEGATIVE Urine Amphetamines Screen Neg NEGATIVE Urine Benzodiazepines Screen Neg NEGATIVE Urine Cocaine Screen Neg NEGATIVE Urine Cannabinoids Screen Pos NEGATIVE Hemoglobin A1c 4.5 <5.7 % A1C Magnesium Level 1.8 1.6-2.6 mg/dL B-Type Natriuretic Peptide 18.79 0-100 pg/mL Triglycerides Level 74 < 150 mg/dL Cholesterol Level 218 H < 200 mg/dL LDL Cholesterol 84 < 100 mg/dL HDL Cholesterol 109 H 40-59 mg/dL Thyroid Stimulating Hormone (TSH) 1.56 0.55-4.78 uIU/mL Hepatitis A IgM Antibody Negative Hepatitis B Surface Antigen Negative Negative Hepatitis B Core IgM Antibody Negative Negative Hepatitis C Antibody Negative Negative HIV (1&2) Antibody Negative Negative Assessment Chest pain, rule out coronary ischemia Rule out structural heart disease Hypertension Dyslipidemia Transaminitis History of tobacco use Alcohol use Plan/Recommendation We will continue with the following plan/recommendations (Dr. Mitchell): * Transthoracic echocardiogram to evaluate cardiac function * Chest pain protocol * HEART score: 3 points * Single antiplatelet therapy and lipid-lowering agent * DVT/VTE prophylaxis * Close Cardiac surveillance * Nuclear stress test Given patient's clinical presentation and comorbidities, we will offer the patient a nuclear stress test at this time. Patient was first offered a treadm ill stress test. Patient reports he has chronic back pain and has had multiple back surgeries and believes he would be unable to complete the stress test if it were on a treadmill. Patient opted for nuclear stress test at this time. We will proceed with nuclear stress test at soonest availability. Thank you for allowing us to care for this patient. Please call with any questions or concerns. Thank you for allowing us to care for this patient. Please call with any questions or concerns. Critical care time spent: 43 minutes This medical document was created using an electronic medical record system with voice recognition software and computerized dictation system. Although this document has been carefully reviewed, there might still be some phonetic and typographical errors. Occasional wrong-word or ``sound-alike substitutions may have occurred due to the inherent limitations of voice recognition software. These areas are purely typographical due to imperfections of the software programs and do not reflect any compromise in the patient's medical care. Please read the chart carefully and recognize, using context, where these substitutions have occurred. Plan discussed with: Patient NYHA Physical activity limitations: NA Date of Service: Feb 08, 2025 Billing Provider: REGGIE PELLETIER Cardiology Common Codes: [id number] INP/OBS CARE (High) Cardiology Consultation Codes: [id number] CONSULT <45MIN REGGIE PELLETIER Feb 08, 2025 11:22
[2025-02-08] MEDS: REGADENOSON 0.4 MG/5 ML SYRG IV ONE ×2 (14:08)
[2025-02-09] VITALS (8 sets, daily range): BP systolic 120–131; BP diastolic 67–96; PULSE 66–103; RESP 17–22; TEMP 97.7–98; O2SAT 93–97
[2025-02-09 06:58] LABS: Basophils # (auto) 0 10 ^3/uL (0-0.2); Basophils % (auto) 0.7 % (0.0-2.0); Eosinophils # (auto) 0.2 10 ^3/uL (0-0.8); Eosinophils % (auto) 4.8 % (0.0-7.0); Hematocrit 48.3 % (41.0-53.0); Hemoglobin 16.4 g/dL (13.5-17.5); Lymphocytes # (auto) 0.9 10 ^3/uL (0.4-5.4); Lymphocytes % (auto) 20.9 % (10.0-50.0); Mean Corpuscular Hemoglobin 30.7 pg (28.0-32.0); Mean Corpuscular Hgb Conc. 33.9 g/dL (32.0-36.0); Mean Corpuscular Volume 90.4 fL (80.0-100.0); Monocytes # (auto) 0.8 10 ^3/uL (0-1.3); Monocytes % (auto) 17.9 % (0.0-12.0); Neutrophils # (auto) 2.4 10 ^3/uL (1.6-8.6); Neutrophils % (auto) 55.7 % (37.0-80.0); Nucleated Red Blood Cells % 0.1 %; Platelet Count (auto) 199 10^3/uL (140-450); Red Blood Cells 5.34 10^6/uL (4.5-5.90); Red Cell Distribution Width 13.2 % (11.8-14.3); White Blood Cell 4.3 10^3/uL (4.4-10.8)
[2025-02-09 07:10] LABS: Alkaline Phosphatase 92 U/L (46-116); Anion Gap 8 (5-15); Calcium 9.9 mg/dL (8.7-10.4); Carbon Dioxide 27 mmol/L (20-31); Chloride 104 mmol/L (98-107); Glucose 97 mg/dL (74-106); Sodium 139 mmol/L (136-145); Total Protein 6.4 g/dL (5.7-8.2)
[2025-02-09 07:11] LABS: Alanine Aminotransferase 123 U/L (7-40); Aspartate Aminotransferase 106 U/L (13-40); Blood Urea Nitrogen 5 mg/dL (9-23); Potassium 3.4 mmol/L (3.5-5.1)
--- NOTE | 2025-02-09 12:53 | DVHPNRES ---
Progress Note Date Seen: February 09, 2025 Resident Creating Document: TANIA HENRIQUEZ JOSE Has the PT tested + for MRSA If YES, has PT been informed?: No Medical Necessity Reason Pt with a Central, PICC or Fol: No Subjective Review of Systems Patient is seen and examined at bedside. Patient is still complaining of mild chest pain Objective vital signs Vital Sign Date Time Temp Pulse Resp B/P (MAP) Pulse Ox O2 Delivery O2 Flow Rate FiO2 02/09/25 09:09 97.7 88 22 131/89 (103) 97 97.7 02/09/25 08:05 Room Air* 0 21 Total Intake and Output 02/08/25 02/08/25 02/09/25 15:00 23:00 07:00 Intake Total 550 ml 700 ml Output Total 3 ml Balance 547 ml 700 ml medications Current Medications Medications Dose Ordered Sig/Marlee Route Start Time Stop Time Status Last Admin Dose Admin Acetaminophen 650 mg Q6HP PRN PO 02/07/25 17:45 Acetaminophen/ Hydrocodone Bitart 1 tab Q4HP PRN PO 02/07/25 17:45 02/09/25 08:37 1 TAB Ondansetron HCl 4 mg Q4HP PRN IV 02/07/25 17:45 Enoxaparin Sodium 40 mg DAILY SC 02/08/25 10:00 02/09/25 08:40 40 MG Nitroglycerin 0.4 mg Q5MINP PRN SL 02/07/25 17:45 Morphine Sulfate 2 mg Q30M PRN IV 02/07/25 17:45 Aspirin 81 mg DAILY PO 02/08/25 10:00 02/09/25 08:37 81 MG Atorvastatin Calcium 80 mg HS PO 02/07/25 22:00 02/08/25 21:33 80 MG Lisinopril 10 mg DAILY PO 02/08/25 10:00 02/09/25 08:38 10 MG Gabapentin 100 mg BID PO 02/07/25 22:00 02/09/25 08:37 100 MG Pantoprazole Sodium 40 mg DAILY IV 02/08/25 10:00 02/09/25 08:38 40 MG Cyclobenzaprine HCl 5 mg Q8HPRN PRN PO 02/07/25 18:45 Examination General Appearance: Alert, Oriented X3, Cooperative, No acute distress HEENT: Atraumatic, PERRLA, EOMI, Mucous membrane moist/pink Respiratory: Clear to auscultation, Normal air movement Cardiovascular: Regular rate, Normal S1, Normal S2, No murmurs, no chest wall tenderness Abdominal: Normal bowel sounds, Soft, No tenderness, No hepatospenomegaly, No masses Extremities: No clubbing, No cyanosis, No edema, Normal pulses, No tenderness/swelling Skin: No rashes, No breakdown, No significant lesion Neuro: Normal gait, Normal speech, Strength at 5/5 X4 ext, Normal tone, Sensation intact, Cranial nerves 3-12 NL, Reflexes 2+ Psych/Mental Status: Mental status NL, Mood NL laboratory and microbiology Laboratory Tests 02/09/25 05:17 Test 02/09/25 05:17 Range/Units Serum Glucose 97 74-106 mg/dL Labs and/or images reviewed: Labs reviewed by me, Image(s) reviewed by me Problem List/Assessment/Plan Problem List/Assessment/Plan Chest pain, R/O ACS Left upper arm pain, likely due to muscle spasm History of hypertension EKGs shows normal sinus rhythm with no acute ST or T-wave changes Serial trop I is within normal limits Consulted cardio, recommended nuclear stress test Echocardiogram Aspirin Atorvastatin Lisinopril Pain management Acute transaminitis Check acute hepatitis panel Liver ultrasound History of childhood asthma Dyslipidemia Hypokalemia, repleted Hypomagnesemia, repleted Hepatomegaly Ultrasound shows, hepatomegaly with diffuse hepatic steatosis DIET: Cardiac the DVT PROPHYLAXIS: Lovenox GI PROPHYLAXIS:: Protonix CODE STATUS: Goal of care discussed for more than 18 minutes, full code DISPOSITION: Telemetry Patient's status and plan discussed with the patient. Case discussed with Dr. Saba. Plan discussed with: Patient, Other (RN) Date of Service: February 09, 2025 Billing Provider: ZEINA JIMENEZ MD Common Visit Codes: [id number] INP/OBS CARE(HIGH) TANIA HENRIQUEZ RESDIENT February 09, 2025 12:53 ZEINA JIMENEZ MD February 11, 2025 20:42
--- NOTE | 2025-02-09 13:18 | DVHSR ---
APPROVED REPORT Exam: Nuclear Stress Test Indication: CHEST PAIN BMI: 0 Medical History Medical History: HTN, Asthma Stress Test Details Stress Test: Pharmacologic stress testing performed using 0.4 mg of regadenoson per 5 mL given IV ov er 10 seconds. HR Resting HR: 68 bpmMax Heart Rate (APMHR): 173.692843 bpm Max HR Achieved: 125 bpmTarget HR (85% APMHR): 147.497232 bpm % of APMHR: 72.25 Recovery HR: 100 bpm BP Resting BP: 127/84 mmHg Recovery BP: 119/78 mmHg ECG Resting ECG: Sinus Rhythm Clinical Reason for Termination: Completed protocol Stress ECG Conclusion lvef 60% no severe ischemia noted inferior wall G I artifact noted sinus tachycardia with stress portion NM EXAM: Myocardial Perfusion REST/STRESS Imaging Protocol: Rest Tc-99m/Stress Tc-99m 1 day Resting Data Rest SPECT myocardial perfusion imaging was performed in supine position 60 minutes following the int ravenous injection of 11.7 mCi of Tc-99m Sestamibi. Time of rest injection: 12:55 Date: 02/08/2025 Time of rest imagin:55 Date: 02/08/2025 Administration Route: IV Administration Site: Left AC Pharmacologic Stress Pharmacologic stress test was performed by injecting Regadenoson 0.4 mg IV push followed by the intra venous injection of 32.0 mCi of Tc-99m Sestamibi. Time of stress injection: 14:10 Date: 02/08/2025 Time of stress imagin:55 Date: 02/08/2025 Administration Route: IV Administration Site: Left AC Gated Stress SPECT was performed 45 minutes after stress injection. The images were gated to evaluate regional wall motion and calculate left ventricular ejection fracti on. Stress only was performed in the Supine position. Nuclear Conclusion Nuclear Findings: negative for ischemia lvef 60% no severe ischemia noted inferior wall G I artifact noted sinus tachycardia with stress portion
--- NOTE | 2025-02-09 13:28 | DVHSR ---
APPROVED REPORT EXAM: Two-dimensional and M-mode echocardiogram with Doppler and color Doppler. Blood Pressure: 120/81 mmHg INDICATION Chest Pain RISK FACTORS Height: 5'8", Weight: 208 DIMENSIONS LVDd4.8 (3.8-5.7cm)LA (2D)4.0 (1.9-4.0cm)Aortic Root3.2 (2.0-3.7cm) LVDs3.3 (2.5-4.0cm)LA (MM) (1.9-4.0cm)Aortic Cusp Exc2.0 (1.5-2.0cm) EF (%) 60.0 (55-70%)Rt. Atrium4.5 (1.9-4.0cm)Asc. Aorta3.2 cm IVSd0.7 (0.7-1.1cm)RV (D)3.9 (1.8-2.4cm) PWd0.9 (0.7-1.1cm) Mitral Valve MitralMitral Stenosis E wave0.58m/sMV Mean GR.mmHg A wave0.82m/sMV Peak GR.mmHg E/A ratio0.72D MVAcm2 DECEL [id number] 1/2 Timems Aortic Valve Aortic ValveAortic Stenosis V10.90m/Nolan Mean GR.3mmHg V21.09m/Nolan Peak GR.5mmHg LVOT Diameter2.2 (1.8-2.4cm)Doppler AVA3.14cm2 Pulmonic Valve V21.00m/s Conclusion lvef 55% normal LV function and size normal RV function normal atria no severe valve abnormalities noted normal pericardium
[2025-02-09] MEDS ORDERED: LISI20TA56 PO (15:06)
--- NOTE | 2025-02-09 15:37 | DVHPN2 ---
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 Denies any cardiac symptoms at time of assessment Objective vital signs Vital Sign Date Time Temp Pulse Resp B/P (MAP) Pulse Ox O2 Delivery O2 Flow Rate FiO2 02/09/25 13:24 98.0 91 22 130/96 (107) 96 98.0 02/09/25 08:05 Room Air* 0 21 Total Intake and Output 02/08/25 02/08/25 02/09/25 15:00 23:00 07:00 Intake Total 550 ml 700 ml Output Total 3 ml Balance 547 ml 700 ml medications Current Medications Medications Dose Ordered Sig/Marlee Route Start Time Stop Time Status Last Admin Dose Admin Acetaminophen 650 mg Q6HP PRN PO 02/07/25 17:45 Acetaminophen/ Hydrocodone Bitart 1 tab Q4HP PRN PO 02/07/25 17:45 02/09/25 15:12 1 TAB Ondansetron HCl 4 mg Q4HP PRN IV 02/07/25 17:45 Enoxaparin Sodium 40 mg DAILY SC 02/08/25 10:00 02/09/25 08:40 40 MG Nitroglycerin 0.4 mg Q5MINP PRN SL 02/07/25 17:45 Morphine Sulfate 2 mg Q30M PRN IV 02/07/25 17:45 Aspirin 81 mg DAILY PO 02/08/25 10:00 02/09/25 08:37 81 MG Atorvastatin Calcium 80 mg HS PO 02/07/25 22:00 02/08/25 21:33 80 MG Lisinopril 10 mg DAILY PO 02/08/25 10:00 02/09/25 08:38 10 MG Gabapentin 100 mg BID PO 02/07/25 22:00 02/09/25 08:37 100 MG Pantoprazole Sodium 40 mg DAILY IV 02/08/25 10:00 02/09/25 08:38 40 MG Cyclobenzaprine HCl 5 mg Q8HPRN PRN PO 02/07/25 18:45 laboratory and microbiology Laboratory Tests 02/09/25 05:17 Test 02/09/25 05:17 Range/Units Serum Glucose 97 74-106 mg/dL Problem List/Assessment/Plan Problem List/Assessment/Plan Chest pain, ruled out coronary ischemia Hypertension Dyslipidemia Transaminitis History of tobacco use Alcohol use Plan/Recommendation (Dr. Mitchell): Transthoracic echocardiogram revealed EF of 55%. The patient underwent a nuclear stress test in which nuclear findings are negative for ischemia. Continue with blood pressure control and lipid-lowering agent. There is no further inpatient cardiac workup indicated at this time. Cardiology will sign off. Thank you for allowing us to care for this patient. Please call with any questions or concerns. This medical document was created using an electronic medical record system with voice recognition software and computerized dictation system. Although this document has been carefully reviewed, there might still be some phonetic and typographical errors. Occasional wrong-word or ``sound-alike substitutions may have occurred due to the inherent limitations of voice recognition software. These areas are purely typographical due to imperfections of the software programs and do not reflect any compromise in the patient's medical care. Please read the chart carefully and recognize, using context, where these substitutions have occurred. Plan discussed with: Patient Date of Service: February 09, 2025 Billing Provider: REGGIE PELLETIER Common Visit Codes: [id number] INP/OBS CARE(HIGH) REGGIE PELLETIER February 09, 2025 15:37
--- NOTE | 2025-02-09 15:49 | DVHDSRES ---
Discharge Summary Date of Admission Resident Creating Document: TANIA HENRIQUEZ RESDIVIVIENNE Feb 07, 2025 at 17:39 Date of Discharge: February 09, 2025 Admitting Diagnosis Chest pain Labs/Diagnostic Data: Laboratory Results Test 02/09/25 05:17 02/08/25 04:56 02/07/25 11:53 02/07/25 11:22 White Blood Count 4.3 10^3/uL (4.4-10.8) Red Blood Count 5.34 10^6/uL (4.5-5.90) Hemoglobin 16.4 g/dL (13.5-17.5) Hematocrit 48.3 % (41.0-53.0) Mean Corpuscular Volume 90.4 fL (80.0-100.0) Mean Corpuscular Hemoglobin 30.7 pg (28.0-32.0) Mean Corpuscular Hemoglobin Concent 33.9 g/dL (32.0-36.0) Red Cell Distribution Width 13.2 % (11.8-14.3) Platelet Count 199 10^3/uL (140-450) Mean Platelet Volume 9.0 fL (6.9-10.8) Neutrophils (%) (Auto) 55.7 % (37.0-80.0) Lymphocytes (%) (Auto) 20.9 % (10.0-50.0) Monocytes (%) (Auto) 17.9 % (0.0-12.0) Eosinophils (%) (Auto) 4.8 % (0.0-7.0) Basophils (%) (Auto) 0.7 % (0.0-2.0) Neutrophils # (Auto) 2.4 10 ^3/uL (1.6-8.6) Lymphocytes # (Auto) 0.9 10 ^3/uL (0.4-5.4) Monocytes # (Auto) 0.8 10 ^3/uL (0-1.3) Eosinophils # (Auto) 0.2 10 ^3/uL (0-0.8) Basophils # (Auto) 0 10 ^3/uL (0-0.2) Nucleated Red Blood Cells 0.1 % Sodium Level 139 mmol/L (136-145) Potassium Level 3.4 mmol/L (3.5-5.1) Chloride Level 104 mmol/L (98-107) Carbon Dioxide Level 27 mmol/L (20-31) Anion Gap 8 (5-15) Blood Urea Nitrogen 5 mg/dL (9-23) Creatinine 0.71 mg/dL (0.700-1.30) Glomerular Filtration Rate Calc 114 mL/min (>90) BUN/Creatinine Ratio 7.0 (10.0-20.0) Serum Glucose 97 mg/dL (74-106) Calcium Level 9.9 mg/dL (8.7-10.4) Total Bilirubin 1.0 mg/dL (0.2-1.0) Aspartate Amino Transferase (AST) 106 U/L (13-40) Alanine Aminotransferase (ALT) 123 U/L (7-40) Alkaline Phosphatase 92 U/L (46-116) Total Protein 6.4 g/dL (5.7-8.2) Albumin 4.0 g/dL (3.2-4.8) Prothrombin Time 10.4 sec (9.3-11.8) Prothrombin Time INR 0.98 (0.9-1.15) Activated Partial Thromboplast Time 25.0 SEC (24.5-34.5) Troponin I High Sensitivity 4 ng/L (</=54) Urine Color Yellow (Yellow) Urine Clarity Clear (Clear) Urine pH 7.0 (5.0-9.0) Urine Specific [place] 1.009 (1.001-1.035) Urine Protein Negative (Negative) Urine Ketones 1+ (Negative) Urine Blood Negative /uL (Negative) Urine Nitrite Negative (Negative) Urine Bilirubin Negative (Negative) Urine Urobilinogen Normal mg/dL (Negative) Urine Leukocyte Esterase Negative /uL (Negative) Urine RBC <1 /hpf (0 - 3) Urine Microscopic WBC 2 /HPF (0-3) Urine Squamous Epithelial Cells None seen /hpf (<5) Urine Bacteria None seen /hpf (None Seen) Urine Glucose Normal mg/dL (Normal) Urine Opiates Screen Neg (NEGATIVE) Urine Fentanyl Screen Neg (NEGATIVE) Urine Barbiturates Screen Neg (NEGATIVE) Urine Phencyclidine Screen Neg (NEGATIVE) Urine Amphetamines Screen Neg (NEGATIVE) Urine Benzodiazepines Screen Neg (NEGATIVE) Urine Cocaine Screen Neg (NEGATIVE) Urine Cannabinoids Screen Pos (NEGATIVE) Test 02/07/25 10:42 Hemoglobin A1c 4.5 % A1C (<5.7) Magnesium Level 1.8 mg/dL (1.6-2.6) B-Type Natriuretic Peptide 18.79 pg/mL (0-100) Triglycerides Level 74 mg/dL (< 150) Cholesterol Level 218 mg/dL (< 200) LDL Cholesterol 84 mg/dL (< 100) HDL Cholesterol 109 mg/dL (40-59) Thyroid Stimulating Hormone (TSH) 1.56 uIU/mL (0.55-4.78) Hepatitis A IgM Antibody Negative Hepatitis B Surface Antigen Negative (Negative) Hepatitis B Core IgM Antibody Negative (Negative) Hepatitis C Antibody Negative (Negative) HIV (1&2) Antibody Negative (Negative) Other Laboratory Tests 02/09/25 05:17 Brief Hx & Hospital Course: 49-year-old male with past medical history of hypertension and childhood asthma came to the hospital due to chest and left upper limb pain. Per patient, he has chronic chest pain since few years, pain is localized on left side of chest, constant, 3/10, pressure-like with no clear exacerbating or relieving factor. Today, upon waking of sleep he had left upper limb pain, pain is localized lower to elbow, 5/10, worsened with mobility and reproducible with palpation. He also reports night sweats, recurrent palpitation which wakens up him from sleep 30-40 times per night and upon waking up feel shortness of breaths. He denies fever, nausea, vomiting, any recent sick contacts or any bowel and bladder habit changes. Patient was previously using lisinopril 20 mg daily and has run out of medicine since August 2024. PMHx: Hypertension and childhood asthma PSHx: Nonsignificant Family history: Not contributory Social history: Ex-smoker ex marijuana user, denies current drug use. Home medication: Lisinopril 20 mg daily, ran out of medicines since August 2024 Allergic history: Sulfa drugs Hospital course: Patient admitted for evaluation of chest pain. EKGs showed normal sinus rhythm with no acute ST or T-wave changes. Serial trop I is within normal limits. The patient was started on aspirin, atorvastatin and pain management. Echocardiogram was performed which was normal. Cardiology was consulted, recommend tidal assistance, normal study. Blood pressure medicine, lisinopril 20 mg daily was restarted in the hospital. On 02/09/2025, the patient was feeling better since admission. Discharge plan discussed with the patient and the patient was discharged home. Discharge plan: Lisinopril 20 mg daily Follow up with the PCP within 1 week of the discharge. Operations or Procedures [address] [address] Ph: [phone] DIAGNOSTIC IMAGING Diagnostic Imaging Report : [id number] Signed PATIENT: SABINA FELICIANO ACCT: [id number] UNIT: [id number] : 1975 LOC: [facility] / [facility] AGE / SEX: 49 / M ADM STATUS: ADM IN SERVICE [id number] ORDERING PHYSICIAN: REGGIE PELLETIER PROCEDURE(s): CWMM - CARDIOLITE MULTIPLE REASON: chest pain ORDER NUMBER(s): [id number], ACCESSION NUMBER(s): [id number] APPROVED REPORT Exam: Nuclear Stress Test Indication: CHEST PAIN BMI: 0 Medical History Medical History: HTN, Asthma Stress Test Details Stress Test: Pharmacologic stress testing performed using 0.4 mg of regadenoson per 5 mL given IV over 10 seconds. HR Resting HR: 68 bpm Max Heart Rate (APMHR): 173.468615 bpm Max HR Achieved: 125 bpm Target HR (85% APMHR): 147.050474 bpm % of APMHR: 72.25 Recovery HR: 100 bpm BP Resting BP: 127/84 mmHg Recovery BP: 119/78 mmHg ECG Resting ECG: Sinus Rhythm Clinical Reason for Termination: Completed protocol Stress ECG Conclusion lvef 60% no severe ischemia noted inferior wall G I artifact noted sinus tachycardia with stress portion NM EXAM: Myocardial Perfusion REST/STRESS Imaging Protocol: Rest Tc-99m/Stress Tc-99m 1 day Resting Data Rest SPECT myocardial perfusion imaging was performed in supine position 60 minutes following the intravenous injection of 11.7 mCi of Tc-99m Sestamibi. Time of rest injection: 12:55 Date: 02/08/2025 Time of rest imagin:55 Date: 02/08/2025 Administration Route: IV Administration Site: Left AC Pharmacologic Stress Pharmacologic stress test was performed by injecting Regadenoson 0.4 mg IV push followed by the intravenous injection of 32.0 mCi of Tc-99m Sestamibi. Time of stress injection: 14:10 Date: 02/08/2025 Time of stress imagin:55 Date: 02/08/2025 Administration Route: IV Administration Site: Left AC Gated Stress SPECT was performed 45 minutes after stress injection. The images were gated to evaluate regional wall motion and calculate left ventricular ejection fraction. Stress only was performed in the Supine position. Nuclear Conclusion Nuclear Findings: negative for ischemia lvef 60% no severe ischemia noted inferior wall G I artifact noted sinus tachycardia with stress portion SIGNED BY: MILO OAKLEY MD SIGNED DATE/TIME: 02/09/25 [id number] CC: Condition at Discharge: Stable Final Diagnosis/Problems List Chest pain, , likely due to musculoskeletal/) Ruled out ACS Left upper arm pain, likely due to muscle spasm History of hypertension Acute transaminitis History of childhood asthma Dyslipidemia Hypokalemia, repleted Hypomagnesemia, repleted Hepatomegaly Cannabinoids use disorder Hypokalemia Discharge Disposition: Home Discharge Instruct/Medications Diet: Consistent carbohydrate Activity: No Restrictions, As Tolerated Follow Up/Referral: Follow up with a PCP within 1 week after discharge Medications: Lisinopril 20 mg daily Discharge Statement: "Patient was advised to return to the ER or call 911 if any headaches, dizziness, shortness of breath, chest pain, abdominal pain, bleeding, fevers, or worsening of medical condition. Patient was counseled about treatment plan, medications, possible side effects, patientverbalized understanding. All questions were answered to the best of my ability. This discharge took greater then 30 minutes in planning, reviewing documentation, counseling the patient, and discussing with other team members." ASSESSMENT ASSESSMENT Assessment Noncardiac chest pain Date of Service: February 09, 2025 Billing Provider: ZEINA JIMENEZ MD Common Visit Codes: 96496-GSU/OBS DISCH DAY >30min TANIA HENRIQUEZ RESDIENT February 09, 2025 15:49 ZEINA JIMENEZ MD February 11, 2025 22:15
[2025-02-09] MEDS: POTASSIUM EFFERVESENT TAB 25 MEQ PO ONE (18:20)
== END 2025-02-09 18:40 | disposition home or self-care (01) | DRG 203 ==
LOC: ER 10:31 → OVERFLOW 17:39 → TELE-WESTW 02-08 16:52
PROVIDERS: ADMIT Student in an Organized Health Care Education/Training Program; ATTEND Student in an Organized Health Care Education/Training Program
DX: R07.89 Other chest pain (principal); R16.0 Hepatomegaly, not elsewhere classified; E78.5 Hyperlipidemia, unspecified; R74.01 Elevation of levels of liver transaminase levels; E87.6 Hypokalemia; G89.29 Other chronic pain; I16.0 Hypertensive urgency; J45.909 Unspecified asthma, uncomplicated; M62.838 Other muscle spasm; E83.42 Hypomagnesemia; F10.90 Alcohol use, unspecified, uncomplicated; Z88.2 Allergy status to sulfonamides; Z79.1 Long term (current) use of non-steroidal anti-inflammatories (NSAID); Z79.899 Other long term (current) drug therapy; Z87.891 Personal history of nicotine dependence; Y90.9 Presence of alcohol in blood, level not specified
CPT/HCPCS: 36415; 71045; 76705; 78452; 80053; 80061; 80074; 80307; 81001; 83036; 83735; 83880; 84443; 84484; 85025; 85610; 85730; 86703; 93005; 93017; 93306; G0378; J2470